=== PATIENT | female | born 1995 | race Caucasian/White ===

== ENCOUNTER 2017-05-28 21:10 | Emergency (ER) | payer OTHER ==
[2017-05-28 21:16] VITALS: BP 133/78; PULSE 82; RESP 18; TEMP 98.8
--- NOTE | 2017-05-28 21:58 | ED ---
General Adult HPI - General Chief complaint: Recheck/Abnormal Lab/Rx Stated complaint: Poss Time Seen by Provider: 05/28/17 21:18 Source: patient, RN notes reviewed Mode of arrival: ambulatory Limitations: no limitations - History of Present Illness Initial comments: Patient 21 year old female who presents emergency room today with a chief complaint of wanting breakfast as per she does admit that her menstrual cycle is approximately 18 days late. She denies any vaginal bleeding discharge. Denies any pain. States she did take test at home had 1 negative and one that she thought there was a faint line. Patient denies any recent fever, chills, shortness of breath, chest pain, back pain, abdominal pain, nausea or vomiting, numbness or tingling, dysuria or hematuria, constipation or diarrhea, headaches or visual changes, or any other complaints. - Related Data Home Medications Medication Instructions Recorded Confirmed No Known Home Medications [No 08/14/16 08/14/16 Known Home Medications] Allergies Allergy/AdvReac Type Severity Reaction Status Date / Time No Known Allergies Allergy Verified 05/28/17 21:16 Review of Systems ROS Statement: Those systems with pertinent positive or pertinent negative responses have been documented in the HPI. ROS Other: All systems not noted in ROS Statement are negative. Past Medical History Past Medical History: No Reported History Additional Past Medical History / Comment(s): Obstetric history: This is her first and she started care with me at 25 weeks. O+, abs neg , Rub Imm, RPR NR, Hep B neg, HIV NR. She had chlamydia through the but tested negative on 12/19. GBS neg. History of Any Multi-Drug Resistant Organisms: None Reported Past Surgical History: No Surgical Hx Reported Past Anesthesia/Blood Transfusion Reactions: No Reported Reaction Past Psychological History: Depression Smoking Status: Current every day smoker Past Alcohol Use History: None Reported Past Drug Use History: None Reported - Past Family History Mother Family Medical History: No Reported History General Exam - General Exam Comments Initial Comments: General: The patient is awake and alert, in no distress, and does not appear acutely ill. Eye: Pupils are equal, round and reactive to light, extra-ocular movements are intact. No nystagmus. There is normal conjunctiva bilaterally. No signs of icterus. Ears, nose, mouth and throat: There are moist mucous membranes and no oral lesions. Neck: The neck is supple, there is no tenderness or JVD. Cardiovascular: There is a regular rate and rhythm. No murmur, rub or gallop is appreciated. Respiratory: Lungs are clear to auscultation, respirations are non-labored, breath sounds are equal. No wheezes, stridor, rales, or rhonchi. Musculoskeletal: Normal ROM, no tenderness. Strength 5/5. Sensation intact. Pulses equal bilaterally 2+. Neurological: A&O x 3. CN II-XII intact, There are no obvious motor or sensory deficits. Coordination appears grossly intact. Speech is normal. Skin: Skin is warm and dry and no rashes or lesions are noted. Psychiatric: Cooperative, appropriate mood & affect, normal judgment. Limitations: no limitations Course Vital Signs 05/28/17 21:13 Temperature 98.8 F Pulse Rate 82 Respiratory 18 Rate Blood Pressure 133/78 O2 Sat by Pulse 100 Oximetry Medical Decision Making - Medical Decision Making test negative here in the emergency room. Patient denies any bleeding , discharge, pain. Patient will be discharged home. She is advised to follow- up with [facility]. Advised return for any other concerns. - Lab Data Lab Results 05/28/17 Range/Units 21:15 Urine HCG, Qual Not Detected (Not Detectd) Disposition Clinical Impression: Negative test Disposition: HOME SELF-CARE Condition: Good Additional Instructions: Please repeat presents to test at the end of the week if not sure cycle has not begun. Please follow-up with [facility] next week. Please return to emergency room for any other concerns. Referrals: Inder Goncalves MD [Primary Care Provider] - 1-2 days Time of Disposition: 21:57
== END 2017-05-28 22:02 | disposition home or self-care (01) ==
LOC: EC 21:10
DX: Z32.02 Encounter for pregnancy test, result negative (principal); N91.2 Amenorrhea, unspecified; F17.200 Nicotine dependence, unspecified, uncomplicated
CPT/HCPCS: 81025; 99282

== ENCOUNTER → 2017-05-30 | Outpatient (CLI) | payer OTHER | LOC: LABWHC1 15:54 | PROVIDERS: ATTEND Obstetrics & Gynecology | DX: N91.2 Amenorrhea, unspecified (principal) | CPT/HCPCS: 36415; 84702 ==

== ENCOUNTER 2017-11-23 20:35 | Emergency (ER) | payer OTHER ==
[2017-11-23 22:05] LABS: Appearance,Urine Cloudy (Clear); Bilirubin,Urine Negative (Negative); Blood,Urine Trace (Negative); Color,Urine Yellow; Glucose,Urine (UA) Negative (Negative); Ketones,Urine 3+ (Negative); Leukocyte Esterase,Urine Moderate (Negative); Mucus,Urine Many /hpf; Nitrite,Urine Negative (Negative); Protein,Urine 1+ (Negative); RBC,Urine 6 /hpf (0-5); Specific Gravity,Urine 1.028 (1.001-1.035); Squamous Epithelial Cell,Urine 10 /hpf (0-4); Urobilinogen,Urine <2.0 mg/dL (<2.0); WBC,Urine 5 /hpf (0-5)
[2017-11-23 22:06] LABS: Basophils # (A) 0.1 k/uL (0-0.2); Basophils % (A) 1 %; Eosinophils # (A) 0.3 k/uL (0-0.7); Eosinophils % (A) 2 %; HCT 40.2 % (34.0-46.0); HGB 13.1 gm/dL (11.4-16.0); Lymphocytes # (A) 2.6 k/uL (1.0-4.8); Lymphocytes % (A) 17 %; MCHC 32.5 g/dL (31.0-37.0); Mean Platelet Volume 7.2; Monocytes # (A) 0.8 k/uL (0-1.0); Monocytes % (A) 5 %; Neutrophils # (A) 11.6 k/uL (1.3-7.7); Neutrophils % (A) 75 %; Platelet Count 412 k/uL (150-450); RBC 4.67 m/uL (3.80-5.40); RDW 14.3 % (11.5-15.5); WBC 15.5 k/uL (4.0-11.0)
[2017-11-23 22:14] LABS: ALT 34 U/L (9-52); AST 23 U/L (14-36); Albumin 4.6 g/dL (3.5-5.0); Alkaline Phosphatase 81 U/L (38-126); Anion Gap 13 mmol/L; Blood Urea Nitrogen 8 mg/dL (7-17); Calcium 10.1 mg/dL (8.4-10.2); Carbon Dioxide 22 mmol/L (22-30); Chloride 102 mmol/L (98-107); Glucose 80 mg/dL (74-99); Sodium 137 mmol/L (137-145); Total Bilirubin 0.4 mg/dL (0.2-1.3)
[2017-11-23] MEDS ORDERED: SODIUM CHLORIDE 0.9% 2,000 ML IV ONE (22:20)
[2017-11-23 22:22] LABS: Potassium 4.4 mmol/L (3.5-5.1)
--- NOTE | 2017-11-23 22:24 | ED ---
Abdominal Pain HPI - General Chief Complaint: Abdominal Pain Stated Complaint: 6 weeks /Cramping Time Seen by Provider: 11/23/17 21:10 Source: patient, RN notes reviewed Mode of arrival: ambulatory Limitations: no limitations - History of Present Illness Initial Comments: This is a 21-year-old female presents emergency Department chief complaint abdominal cramping, . Patient states that she is A0 scheduled see Dr. Dexter. She believes that she's around 8 weeks . Patient states she has no vaginal bleeding or vaginal discharge. She states that proximal one hour prior arrival she started having some lower abdominal cramping increased back. Which he denies any dysuria or hematuria. Denies any vomiting she has been some nausea. Denies fever, chills, chest pain or shortness of breath. - Related Data Home Medications Medication Instructions Recorded Confirmed No Known Home Medications [No 11/23/17 11/23/17 Known Home Medications] Allergies Allergy/AdvReac Type Severity Reaction Status Date / Time No Known Allergies Allergy Verified 11/23/17 21:28 Review of Systems ROS Statement: Those systems with pertinent positive or pertinent negative responses have been documented in the HPI. ROS Other: All systems not noted in ROS Statement are negative. Past Medical History Past Medical History: No Reported History Additional Past Medical History / Comment(s): Obstetric history: This is her first and she started care with me at 25 weeks. O+, abs neg , Rub Imm, RPR NR, Hep B neg, HIV NR. She had chlamydia through the but tested negative on 12/19. GBS neg. History of Any Multi-Drug Resistant Organisms: None Reported Past Surgical History: No Surgical Hx Reported Past Anesthesia/Blood Transfusion Reactions: No Reported Reaction Past Psychological History: Depression Smoking Status: Current every day smoker Past Alcohol Use History: None Reported Past Drug Use History: None Reported - Past Family History Mother Family Medical History: No Reported History General Exam Limitations: no limitations General appearance: alert, in no apparent distress Head exam: Present: atraumatic, normocephalic, normal inspection Eye exam: Present: normal appearance, PERRL, EOMI. Absent: scleral icterus, conjunctival injection, periorbital swelling Respiratory exam: Present: normal lung sounds bilaterally. Absent: respiratory distress, wheezes, rales, rhonchi, stridor Cardiovascular Exam: Present: regular rate, normal rhythm, normal heart sounds. Absent: systolic murmur, diastolic murmur, rubs, gallop, clicks GI/Abdominal exam: Present: soft, normal bowel sounds. Absent: distended, tenderness, guarding, rebound, rigid Back exam: Absent: CVA tenderness (R), CVA tenderness (L) Course Vital Signs 11/23/17 11/23/17 20:45 22:46 Temperature 98.7 F Pulse Rate 87 65 Respiratory 16 18 Rate Blood Pressure 158/86 120/56 O2 Sat by Pulse 100 100 Oximetry Medical Decision Making - Medical Decision Making 21-year-old female presented emergency department for abdominal cramping and . Patient's labwork Essentially Unremarkable. Patient Is Slightly Dehydrated Patient Was Well-Hydrated Here States His Has Helped Improvement. Patient No Vaginal Bleeding Patient Will Be Discharged at This Time Return Parameters Were Discussed. - Lab Data Result diagrams: 11/23/17 21:46 11/23/17 21:46 Lab Results 11/23/17 11/23/17 11/23/17 Range/Units 21:46 21:46 21:46 WBC 15.5 H (4.0-11.0) k/uL RBC 4.67 (3.80-5.40) m/uL Hgb 13.1 (11.4-16.0) gm/dL Hct 40.2 (34.0-46.0) % MCV 86.0 (80.0-100.0) fL MCH 28.0 (25.0-35.0) pg MCHC 32.5 (31.0-37.0) g/dL RDW 14.3 (11.5-15.5) % Plt Count 412 (150-450) k/uL Neutrophils % 75 % Lymphocytes % 17 % Monocytes % 5 % Eosinophils % 2 % Basophils % 1 % Neutrophils # 11.6 H (1.3-7.7) k/uL Lymphocytes # 2.6 (1.0-4.8) k/uL Monocytes # 0.8 (0-1.0) k/uL Eosinophils # 0.3 (0-0.7) k/uL Basophils # 0.1 (0-0.2) k/uL Sodium 137 (137-145) mmol/L Potassium 4.4 (3.5-5.1) mmol/L Chloride 102 (98-107) mmol/L Carbon Dioxide 22 (22-30) mmol/L Anion Gap 13 mmol/L BUN 8 (7-17) mg/dL Creatinine 0.70 (0.52-1.04) mg/dL Est GFR (MDRD) Af Amer >60 (>60 ml/min/1.73 sqM) Est GFR (MDRD) Non-Af >60 (>60 ml/min/1.73 sqM) Glucose 80 (74-99) mg/dL Calcium 10.1 (8.4-10.2) mg/dL Total Bilirubin 0.4 (0.2-1.3) mg/dL AST 23 (14-36) U/L ALT 34 (9-52) U/L Alkaline Phosphatase 81 (38-126) U/L Total Protein 8.0 (6.3-8.2) g/dL Albumin 4.6 (3.5-5.0) g/dL Urine Color Urine Appearance (Clear) Urine pH (5.0-8.0) Ur Specific [place] (1.001-1.035) Urine Protein (Negative) Urine Glucose (UA) (Negative) Urine Ketones (Negative) Urine Blood (Negative) Urine Nitrite (Negative) Urine Bilirubin (Negative) Urine Urobilinogen (<2.0) mg/dL Ur Leukocyte Esterase (Negative) Urine RBC (0-5) /hpf Urine WBC (0-5) /hpf Ur Squamous Epith Cells (0-4) /hpf Urine Mucus (None) /hpf Urine HCG, Qual Detected (Not Detectd) 11/23/17 Range/Units 21:46 WBC (4.0-11.0) k/uL RBC (3.80-5.40) m/uL Hgb (11.4-16.0) gm/dL Hct (34.0-46.0) % MCV (80.0-100.0) fL MCH (25.0-35.0) pg MCHC (31.0-37.0) g/dL RDW (11.5-15.5) % Plt Count (150-450) k/uL Neutrophils % % Lymphocytes % % Monocytes % % Eosinophils % % Basophils % % Neutrophils # (1.3-7.7) k/uL Lymphocytes # (1.0-4.8) k/uL Monocytes # (0-1.0) k/uL Eosinophils # (0-0.7) k/uL Basophils # (0-0.2) k/uL Sodium (137-145) mmol/L Potassium (3.5-5.1) mmol/L Chloride (98-107) mmol/L Carbon Dioxide (22-30) mmol/L Anion Gap mmol/L BUN (7-17) mg/dL Creatinine (0.52-1.04) mg/dL Est GFR (MDRD) Af Amer (>60 ml/min/1.73 sqM) Est GFR (MDRD) Non-Af (>60 ml/min/1.73 sqM) Glucose (74-99) mg/dL Calcium (8.4-10.2) mg/dL Total Bilirubin (0.2-1.3) mg/dL AST (14-36) U/L ALT (9-52) U/L Alkaline Phosphatase (38-126) U/L Total Protein (6.3-8.2) g/dL Albumin (3.5-5.0) g/dL Urine Color Yellow Urine Appearance Cloudy H (Clear) Urine pH 6.0 (5.0-8.0) Ur Specific [place] 1.028 (1.001-1.035) Urine Protein 1+ H (Negative) Urine Glucose (UA) Negative (Negative) Urine Ketones 3+ H (Negative) Urine Blood Trace H (Negative) Urine Nitrite Negative (Negative) Urine Bilirubin Negative (Negative) Urine Urobilinogen <2.0 (<2.0) mg/dL Ur Leukocyte Esterase Moderate H (Negative) Urine RBC 6 H (0-5) /hpf Urine WBC 5 (0-5) /hpf Ur Squamous Epith Cells 10 H (0-4) /hpf Urine Mucus Many H (None) /hpf Urine HCG, Qual (Not Detectd) Disposition Clinical Impression: Abdominal pain during , Dehydration Disposition: HOME SELF-CARE Condition: Stable Instructions: Abdominal Pain in (ED) Additional Instructions: Please return to the Emergency Department if symptoms worsen or any other concerns. Referrals: Inder Goncalves MD [Primary Care Provider] - 1-2 days Time of Disposition: 23:07
[2017-11-23 22:47] VITALS: RESP 18
--- NOTE | 2017-11-23 23:00 | US ---
EXAMINATION TYPE: US OB <= 14 wk fetus DATE OF EXAM: 11/23/2017 COMPARISON: NONE CLINICAL HISTORY: Pain. Cramping x 1 hour. No bleeding. EXAM PERFORMED: Transabdominal (TA) EXAM MEASUREMENTS: GESTATIONAL AGE / DATING Dates by LMP: (9 weeks/4 days) EDC: 06/24/2018 Dates by Current Scan for: (6 weeks/5 days) EDC: 07/14/2018 MATERNAL ANATOMY Uterus: 9.6 x 7.1 x 5.4 cm Right Ovary: 3.5 x 1.8 x 2.1 cm Left Ovary: 3.4 x 2.0 x 2.0 cm Post CDS / Adnexa: no free fluid Presence of free fluid: no Presence of corpus luteal cyst: no Presence of subchorionic bleed: no GESTATION / SURVEY CRL: 0.8 cm (6 weeks/5 days) MSD: seen, not measured Yolk Sac (normal less than 6mm): 2.6 mm Heart Rate: 126 bpm Rhythm: Normal IUP: Viable IUP Date of LMP: 09/17/2017, Beta HcG (if available): not available Live single IUP measuring 6 weeks 5 days IMPRESSION: Single living intrauterine fetus. The gestational age is 6 weeks 5 days. I see no complicating proces s.
[2017-11-23 23:35] VITALS: BP 112/68; PULSE 83; TEMP 98.5
== END 2017-11-23 23:34 | disposition home or self-care (01) ==
LOC: EC 20:35
DX: O26.891 Other specified pregnancy related conditions, first trimester (principal); R10.9 Unspecified abdominal pain; O99.281 Endocrine, nutritional and metabolic diseases complicating pregnancy, first trimester; E86.0 Dehydration; O99.331 Smoking (tobacco) complicating pregnancy, first trimester; F17.200 Nicotine dependence, unspecified, uncomplicated; Z3A.01 Less than 8 weeks gestation of pregnancy
CPT/HCPCS: 36415; 76801; 80053; 81001; 81025; 84702; 85025; 86900; 86901; 96360; 99284

== ENCOUNTER 2017-12-01 19:46 | Emergency (ER) | payer OTHER ==
[2017-12-01] MEDS ORDERED: SODIUM CHLORIDE 0.9% 2,000 ML IV ONE (20:14)
--- NOTE | 2017-12-01 20:21 | ED ---
Abdominal Pain HPI - General Chief Complaint: Abdominal Pain Stated Complaint: 7 wks preg/abdominal pain Time Seen by Provider: 12/01/17 19:54 Source: patient, RN notes reviewed Mode of arrival: ambulatory Limitations: no limitations - History of Present Illness Initial Comments: This is a 21-year-old female presents emergency Department with chief complaint of lower abdominal, pelvic pain. Patient states she's fracture 7 weeks . She denies any vaginal bleeding or vaginal discharge. She states that she was here for swelling that she is dehydrated. Patient denies urinary frequency but states that she has some discomfort in her pelvic region when she urinates. Patient states that she's been waiting for her [employer] to call breath she has not her back for scheduled appointment. Patient is A0 patient denies fever, chills, back pain, chest pain or shortness of breath. She states movement makes her symptoms worse at this time. - Related Data Home Medications Medication Instructions Recorded Confirmed Pvo-Efju-Rzgwi Acid 1 cap PO DAILY 12/01/17 12/01/17 [-U Capsule (formulary)] Allergies Allergy/AdvReac Type Severity Reaction Status Date / Time No Known Allergies Allergy Verified 12/01/17 20:28 Review of Systems ROS Statement: Those systems with pertinent positive or pertinent negative responses have been documented in the HPI. ROS Other: All systems not noted in ROS Statement are negative. Past Medical History Past Medical History: No Reported History Additional Past Medical History / Comment(s): Obstetric history: This is her first and she started care with [facility] at 25 weeks. O+, abs neg , Rub Imm, RPR NR, Hep B neg, HIV NR. She had chlamydia through the but tested negative on 12/19. GBS neg. History of Any Multi-Drug Resistant Organisms: None Reported Past Surgical History: No Surgical Hx Reported Past Anesthesia/Blood Transfusion Reactions: No Reported Reaction Past Psychological History: Depression Smoking Status: Current every day smoker Past Alcohol Use History: None Reported Past Drug Use History: None Reported - Past Family History Mother Family Medical History: No Reported History General Exam Limitations: no limitations General appearance: alert, in no apparent distress Head exam: Present: atraumatic, normocephalic, normal inspection Neck exam: Present: normal inspection, full ROM. Absent: tenderness, meningismus, lymphadenopathy Respiratory exam: Present: normal lung sounds bilaterally. Absent: respiratory distress, wheezes, rales, rhonchi, stridor Cardiovascular Exam: Present: regular rate, normal rhythm, normal heart sounds. Absent: systolic murmur, diastolic murmur, rubs, gallop, clicks GI/Abdominal exam: Present: soft, tenderness (minimal lower abdominal tenderness ), normal bowel sounds. Absent: distended, guarding, rebound, rigid Back exam: Absent: CVA tenderness (R), CVA tenderness (L) Skin exam: Present: warm, dry, intact, normal color. Absent: rash Course Vital Signs 12/01/17 19:58 Temperature 97 F L Pulse Rate 83 Respiratory 18 Rate Blood Pressure 118/62 O2 Sat by Pulse 97 Oximetry Medical Decision Making - Medical Decision Making 21-year-old female presented return for lower abdominal pain. Patient ultrasound shows satisfactory growth. Patient's lab work is unremarkable. They recommend pelvic exam no patient states she would rather have her [employer] on this. Patient be discharged at this time return parameters were discussed. - Lab Data Result diagrams: 12/01/17 20:22 12/01/17 20:22 Lab Results 12/01/17 12/01/17 12/01/17 Range/Units 20:22 20:22 20:22 WBC 17.5 H (4.0-11.0) k/uL RBC 4.53 (3.80-5.40) m/uL Hgb 12.8 (11.4-16.0) gm/dL Hct 39.8 (34.0-46.0) % MCV 87.7 (80.0-100.0) fL MCH 28.2 (25.0-35.0) pg MCHC 32.2 (31.0-37.0) g/dL RDW 14.2 (11.5-15.5) % Plt Count 421 (150-450) k/uL Neutrophils % 74 % Lymphocytes % 19 % Monocytes % 4 % Eosinophils % 2 % Basophils % 0 % Neutrophils # 13.0 H (1.3-7.7) k/uL Lymphocytes # 3.3 (1.0-4.8) k/uL Monocytes # 0.6 (0-1.0) k/uL Eosinophils # 0.3 (0-0.7) k/uL Basophils # 0.1 (0-0.2) k/uL Sodium 136 L (137-145) mmol/L Potassium 4.3 (3.5-5.1) mmol/L Chloride 100 (98-107) mmol/L Carbon Dioxide 24 (22-30) mmol/L Anion Gap 12 mmol/L BUN 6 L (7-17) mg/dL Creatinine 0.59 (0.52-1.04) mg/dL Est GFR (MDRD) Af Amer >60 (>60 ml/min/1.73 sqM) Est GFR (MDRD) Non-Af >60 (>60 ml/min/1.73 sqM) Glucose 86 (74-99) mg/dL Calcium 9.9 (8.4-10.2) mg/dL Urine Color Yellow Urine Appearance Cloudy H (Clear) Urine pH 5.5 (5.0-8.0) Ur Specific [place] 1.022 (1.001-1.035) Urine Protein Trace H (Negative) Urine Glucose (UA) Negative (Negative) Urine Ketones Trace H (Negative) Urine Blood Small H (Negative) Urine Nitrite Negative (Negative) Urine Bilirubin Negative (Negative) Urine Urobilinogen <2.0 (<2.0) mg/dL Ur Leukocyte Esterase Moderate H (Negative) Urine RBC 1 (0-5) /hpf Urine WBC 4 (0-5) /hpf Ur Squamous Epith Cells 5 H (0-4) /hpf Urine Bacteria Rare H (None) /hpf Urine Mucus Many H (None) /hpf Disposition Clinical Impression: Abdominal pain during Disposition: HOME SELF-CARE Condition: Stable Instructions: Abdominal Pain in (ED) Additional Instructions: Please return to the Emergency Department if symptoms worsen or any other concerns. Referrals: Inder Goncalves MD [Primary Care Provider] - 1-2 days Time of Disposition: 21:36
[2017-12-01 20:32] LABS: Basophils # (A) 0.1 k/uL (0-0.2); Basophils % (A) 0 %; Eosinophils # (A) 0.3 k/uL (0-0.7); Eosinophils % (A) 2 %; HCT 39.8 % (34.0-46.0); HGB 12.8 gm/dL (11.4-16.0); Lymphocytes # (A) 3.3 k/uL (1.0-4.8); Lymphocytes % (A) 19 %; MCH 28.2 pg (25.0-35.0); MCHC 32.2 g/dL (31.0-37.0); MCV 87.7 fL (80.0-100.0); Mean Platelet Volume 7.3; Monocytes # (A) 0.6 k/uL (0-1.0); Monocytes % (A) 4 %; Neutrophils % (A) 74 %; Platelet Count 421 k/uL (150-450); RBC 4.53 m/uL (3.80-5.40); RDW 14.2 % (11.5-15.5); WBC 17.5 k/uL (4.0-11.0)
[2017-12-01 20:39] LABS: Appearance,Urine Cloudy (Clear); Bacteria,Urine Rare /hpf; Bilirubin,Urine Negative (Negative); Blood,Urine Small (Negative); Color,Urine Yellow; Glucose,Urine (UA) Negative (Negative); Ketones,Urine Trace (Negative); Leukocyte Esterase,Urine Moderate (Negative); Mucus,Urine Many /hpf; Nitrite,Urine Negative (Negative); PH, Urine 5.5 (5.0-8.0); Protein,Urine Trace (Negative); RBC,Urine 1 /hpf (0-5); Specific Gravity,Urine 1.022 (1.001-1.035); Squamous Epithelial Cell,Urine 5 /hpf (0-4); Urobilinogen,Urine <2.0 mg/dL (<2.0); WBC,Urine 4 /hpf (0-5)
[2017-12-01 20:45] LABS: Anion Gap 12 mmol/L; Blood Urea Nitrogen 6 mg/dL (7-17); Calcium 9.9 mg/dL (8.4-10.2); Carbon Dioxide 24 mmol/L (22-30); Chloride 100 mmol/L (98-107); Glucose 86 mg/dL (74-99); Potassium 4.3 mmol/L (3.5-5.1); Sodium 136 mmol/L (137-145)
--- NOTE | 2017-12-01 21:30 | US ---
EXAMINATION TYPE: US OB <= 14 wk fetus DATE OF EXAM: 12/01/2017 COMPARISON: 11/23/2017 CLINICAL HISTORY: Pain. Cramping pressure no bleeding EXAM PERFORMED: Transabdominal (TA) EXAM MEASUREMENTS: GESTATIONAL AGE / DATING Physician Established: Not yet established Dates by LMP: (7 weeks/6 days) EDC: 07/14/2018 Dates by First Scan: (6 weeks/5 days) EDC: 07/14/2018 Dates by Current Scan for: ( 7 weeks/1 days) EDC: 07/19/2018 MATERNAL ANATOMY Uterus: 10.3 x 6.3 x 7.7 cm Right Ovary: 3.2 x 2.0 x 1.2 cm Left Ovary: 3.0 x 2.0 x 2.1 cm Post CDS / Adnexa: wnl Presence of free fluid: no Presence of corpus luteal cyst: no Presence of subchorionic bleed: no GESTATION / SURVEY CRL: 1.1 cm (7 weeks/1 days) Yolk Sac (normal less than 6mm): 2mm Heart Rate: 162 bpm Rhythm: Normal IUP: Viable IUP Beta HcG (if available): Not available at this time Viable IUP seen 7w1d JUSTIN 07/19/2018 HR 162 BPM IMPRESSION: Allowing for error of measurement, there is satisfactory growth compared to last exam.
[2017-12-01 21:44] VITALS: BP 122/58; PULSE 72; RESP 12; TEMP 97
[2017-12-01] MEDS ORDERED: ACETAMINOPHEN TAB 325 MG TAB PO STA (21:44)
[2017-12-01 21:55] LABS: HCG,Quantitative Serum 75962.1 mIU/mL
== END 2017-12-01 22:57 | disposition home or self-care (01) ==
LOC: EC 19:46
DX: O26.891 Other specified pregnancy related conditions, first trimester (principal); R10.2 Pelvic and perineal pain; O99.331 Smoking (tobacco) complicating pregnancy, first trimester; F17.200 Nicotine dependence, unspecified, uncomplicated; Z79.899 Other long term (current) drug therapy; Z3A.01 Less than 8 weeks gestation of pregnancy
CPT/HCPCS: 36415; 76801; 80048; 81001; 84702; 85025; 87086; 96360; 96361; 99284

== ENCOUNTER → 2017-12-30 | Outpatient (CLI) | payer OTHER ==
--- NOTE | 2017-12-30 10:04 | US ---
EXAMINATION TYPE: US OB <= 14 wk fetus DATE OF EXAM: 12/30/2017 COMPARISON: Prior ultrasound December 01, 2017 CLINICAL HISTORY: [id number] Confirm Dates. Positive beta-hCG test. EXAM PERFORMED: Transabdominal (TA) EXAM MEASUREMENTS: GESTATIONAL AGE / DATING Physician Established: (12 weeks/0 days) EDC: 07/14/18 Dates by LMP: (12 weeks/0 days) EDC: 07/14/18 Dates by First Scan: (11 weeks/2 days) EDC: 07/19/2018 Dates by Current Scan for: (12 weeks/0 days) EDC: 07/19/18 MATERNAL ANATOMY Uterus: 15. 1 x 5.5 x 8.9cm Right Ovary: obscured by overlying bowel gas Left Ovary: 3.5 x 2.1 x 2.3cm Post CDS / Adnexa: wnl Presence of free fluid: no Presence of subchorionic bleed: 2 noted, measuring 1.1 x 0.4 x 1.1cm and 1.1 x 0.5 x 1.8cm GESTATION / SURVEY CRL: 5.3 (12 weeks/0 days) Yolk Sac (normal less than 6mm): not seen Heart Rate: 163 bpm Rhythm: Normal IUP: Viable IUP Single live intrauterine gestation is redemonstrated. Gestational sac and pole are seen on curr ent study. Yolk sac is not clearly identified. No free fluid is seen in pelvic cul-de-sac. There are however 2 tiny fluid collections adjacent to gestational could reflect small subchorionic hemorrhages that are marked towards end of study. Left ovary is identified. Right ovary is not clearly seen on today's study. No suspicious adnexal mas ses noted. IMPRESSION: Single live intrauterine gestation is redemonstrated, mean crown-rump length is 5.3 cm corresponding to 12 weeks 0 day old fetus. 2 tiny subchorionic hemorrhages are noted on current study.
== END | disposition home or self-care (01) ==
LOC: RADUSWWP 09:02
PROVIDERS: ATTEND Obstetrics & Gynecology
DX: O20.8 Other hemorrhage in early pregnancy (principal); Z3A.12 12 weeks gestation of pregnancy
CPT/HCPCS: 76801

== ENCOUNTER 2018-01-24 19:50 | Emergency (ER) | payer OTHER ==
[2018-01-24] MEDS ORDERED: ACETAMINOPHEN TAB 325 MG TAB PO STA (21:13)
[2018-01-24] MEDS ORDERED: SODIUM CHLORIDE 0.9% 1,000 ML IV ONE ×2 (21:13→22:28)
--- NOTE | 2018-01-24 21:16 | ED ---
Abdominal Pain HPI - General Chief Complaint: Abdominal Pain Stated Complaint: 15 wks pg; cramping Time Seen by Provider: 01/24/18 20:55 Source: patient Mode of arrival: ambulatory Limitations: no limitations - History of Present Illness Initial Comments: 22-year-old female patient presents to the emergency department today for complaints of lower abdominal pain and lower back pain. Patient reports she is 15 weeks . Has been receiving care from Dr. Trejo. States that the pain started around 5:30 this evening. States that at the beginning of was severe and has lessened in severity at this time her wrist are present. She is A0. Patient denies any hematuria, dysuria, urinary frequency, urinary urgency. Denies any abnormal vaginal bleeding or discharge today. States she is having normal bowel movements. She denies any nausea or vomiting with this. Denies any fevers or chills. Patient denies any recent rash, shortness breath, chest pain, numbness, tingling, dizziness, weakness, hematuria , dysuria, urinary urgency, urinary frequency, headache, visual changes, or any other complaints. - Related Data Home Medications Medication Instructions Recorded Confirmed Bmb-[id number] Acid 1 cap PO DAILY 12/01/17 01/24/18 [-U Capsule (formulary)] Allergies Allergy/AdvReac Type Severity Reaction Status Date / Time No Known Allergies Allergy Verified 12/01/17 20:28 Review of Systems ROS Statement: Those systems with pertinent positive or pertinent negative responses have been documented in the HPI. ROS Other: All systems not noted in ROS Statement are negative. Past Medical History Past Medical History: No Reported History Additional Past Medical History / Comment(s): Obstetric history: This is her first and she started care with ks at 25 weeks. O+, abs neg , Rub Imm, RPR NR, Hep B neg, HIV NR. She had chlamydia through the but tested negative on 12/19. GBS neg. History of Any Multi-Drug Resistant Organisms: None Reported Past Surgical History: No Surgical Hx Reported Past Anesthesia/Blood Transfusion Reactions: No Reported Reaction Past Psychological History: Depression Smoking Status: Current every day smoker Past Alcohol Use History: None Reported Past Drug Use History: None Reported - Past Family History Mother Family Medical History: No Reported History General Exam Limitations: no limitations General appearance: alert, in no apparent distress, other (This is a well- developed, well-nourished adult female patient in no acute distress. Vital signs upon presentation are temperature 98.7F, pulse 80, respirations 20, blood pressure 121/71, pulse ox 100% on room air.) Eye exam: Present: normal appearance, PERRL, EOMI. Absent: scleral icterus, conjunctival injection, periorbital swelling ENT exam: Present: normal exam, normal oropharynx, mucous membranes moist Respiratory exam: Present: normal lung sounds bilaterally. Absent: respiratory distress, wheezes, rales, rhonchi, stridor Cardiovascular Exam: Present: regular rate, normal rhythm, normal heart sounds. Absent: systolic murmur, diastolic murmur, rubs, gallop, clicks GI/Abdominal exam: Present: soft, tenderness (Lower abdominal tenderness both right and left lower quadrants.), normal bowel sounds. Absent: distended, guarding, rebound, rigid Back exam: Present: normal inspection. Absent: CVA tenderness (R), CVA tenderness (L) Neurological exam: Present: alert, oriented X3, CN II-XII intact Psychiatric exam: Present: normal affect, normal mood Skin exam: Present: warm, dry, intact, normal color. Absent: rash Course Vital Signs 01/24/18 01/24/18 01/24/18 20:05 22:24 23:41 Temperature 98.7 F 99 F Pulse Rate 80 62 80 Respiratory 20 18 18 Rate Blood Pressure 121/71 126/62 117/62 O2 Sat by Pulse 100 100 99 Oximetry Medical Decision Making - Medical Decision Making 22-year-old female patient presented to the emergency department today for complaints of lower abdominal pain and low back pain. Physical examination was unremarkable. Abdomen was soft and nontender. There is no CVA tenderness. Labs reviewed and did reveal an elevated white blood cell count at 16.3. Sodium is 136. Urinalysis showed a cloudy appearance with 1+ protein, 3+ ketones, 1+ bilirubin. There is a small amount of leukocyte esterase, 5 squamous epithelial cells, and many mucus. Ultrasound showed a viable intrauterine measuring 15 weeks. There is no evidence of placenta previa or abruption. Patient is not having any vaginal discharge or bleeding so we did not perform pelvic exam at this time. I did discuss findings with the patient and informed her symptoms could be related to dehydration as she did have 2+ ketones in the urine. Her blood sugar was normal. We did give her 2 liters of normal saline here in the department. She reports she is feeling better. She is instructed to follow-up with her SENIOR SOFTWARE PROJECT MANAGER as soon as possible for further evaluation. She is instructed to return here immediately for any new, worsening, or concerning symptoms. She verbalizes understanding and agrees this plan. - Lab Data Result diagrams: 01/24/18 21:15 01/24/18 21:15 Lab Results 01/24/18 01/24/18 01/24/18 Range/Units 21:15 21:15 21:15 WBC 16.3 H (4.0-11.0) k/uL RBC 4.07 (3.80-5.40) m/uL Hgb 11.6 (11.4-16.0) gm/dL Hct 34.2 (34.0-46.0) % MCV 84.1 (80.0-100.0) fL MCH 28.4 (25.0-35.0) pg MCHC 33.8 (31.0-37.0) g/dL RDW 14.3 (11.5-15.5) % Plt Count 388 (150-450) k/uL Neutrophils % 78 % Lymphocytes % 14 % Monocytes % 5 % Eosinophils % 2 % Basophils % 0 % Neutrophils # 12.7 H (1.3-7.7) k/uL Lymphocytes # 2.3 (1.0-4.8) k/uL Monocytes # 0.7 (0-1.0) k/uL Eosinophils # 0.3 (0-0.7) k/uL Basophils # 0.0 (0-0.2) k/uL Sodium 136 L (137-145) mmol/L Potassium 4.1 (3.5-5.1) mmol/L Chloride 102 (98-107) mmol/L Carbon Dioxide 23 (22-30) mmol/L Anion Gap 11 mmol/L BUN 7 (7-17) mg/dL Creatinine 0.50 L (0.52-1.04) mg/dL Est GFR (CKD-EPI)AfAm >90 (>60 ml/min/1.73 sqM) Est GFR (CKD-EPI)NonAf >90 (>60 ml/min/1.73 sqM) Glucose 74 (74-99) mg/dL Calcium 9.4 (8.4-10.2) mg/dL Total Bilirubin 0.5 (0.2-1.3) mg/dL AST 29 (14-36) U/L ALT 28 (9-52) U/L Alkaline Phosphatase 91 (38-126) U/L Total Protein 7.5 (6.3-8.2) g/dL Albumin 3.9 (3.5-5.0) g/dL Amylase 52 (30-110) U/L Lipase 47 (23-300) U/L Urine Color Yellow Urine Appearance Cloudy H (Clear) Urine pH 6.0 (5.0-8.0) Ur Specific [place] 1.030 (1.001-1.035) Urine Protein 1+ H (Negative) Urine Glucose (UA) Negative (Negative) Urine Ketones 3+ H (Negative) Urine Blood Negative (Negative) Urine Nitrite Negative (Negative) Urine Bilirubin 1+ H (Negative) Urine Urobilinogen 4.0 (<2.0) mg/dL Ur Leukocyte Esterase Small H (Negative) Urine RBC 3 (0-5) /hpf Urine WBC 3 (0-5) /hpf Ur Squamous Epith Cells 5 H (0-4) /hpf Urine Mucus Many H (None) /hpf - Radiology Data Radiology results: report reviewed, image reviewed Ultrasound of the fetus was obtained, report was reviewed in its entirety. Impression by Dr. Robertson shows ultrasound gestational age is 16 weeks. There is satisfactory growth compared to last exam. Hypoechoic areas in the placenta are probably venous lakes and are of doubtful significance. No evidence of placental abruption or placenta previa. Disposition Clinical Impression: Dehydration, Pelvic pain during Disposition: HOME SELF-CARE Condition: Good Instructions: Dehydration (ED), Abdominal Pain in (ED) Additional Instructions: Increase fluids. Follow-up with her SENIOR SOFTWARE PROJECT MANAGER as soon as possible. Return here immediately for any new, worsening, or concerning symptoms. Referrals: Inder Goncalves MD [Primary Care Provider] - 1-2 days Time of Disposition: 22:47
[2018-01-24 21:44] LABS: Basophils % (A) 0 %; Eosinophils # (A) 0.3 k/uL (0-0.7); Eosinophils % (A) 2 %; HCT 34.2 % (34.0-46.0); HGB 11.6 gm/dL (11.4-16.0); Lymphocytes # (A) 2.3 k/uL (1.0-4.8); Lymphocytes % (A) 14 %; MCH 28.4 pg (25.0-35.0); MCHC 33.8 g/dL (31.0-37.0); MCV 84.1 fL (80.0-100.0); Mean Platelet Volume 7.1; Monocytes # (A) 0.7 k/uL (0-1.0); Monocytes % (A) 5 %; Neutrophils # (A) 12.7 k/uL (1.3-7.7); Neutrophils % (A) 78 %; Platelet Count 388 k/uL (150-450); RBC 4.07 m/uL (3.80-5.40); RDW 14.3 % (11.5-15.5); WBC 16.3 k/uL (4.0-11.0)
[2018-01-24 21:46] LABS: Appearance,Urine Cloudy (Clear); Bilirubin,Urine 1+ (Negative); Blood,Urine Negative (Negative); Color,Urine Yellow; Glucose,Urine (UA) Negative (Negative); Ketones,Urine 3+ (Negative); Leukocyte Esterase,Urine Small (Negative); Mucus,Urine Many /hpf; Nitrite,Urine Negative (Negative); Protein,Urine 1+ (Negative); RBC,Urine 3 /hpf (0-5); Squamous Epithelial Cell,Urine 5 /hpf (0-4); WBC,Urine 3 /hpf (0-5)
[2018-01-24 21:58] LABS: ALT 28 U/L (9-52); AST 29 U/L (14-36); Albumin 3.9 g/dL (3.5-5.0); Alkaline Phosphatase 91 U/L (38-126); Amylase 52 U/L (30-110); Anion Gap 11 mmol/L; Blood Urea Nitrogen 7 mg/dL (7-17); Calcium 9.4 mg/dL (8.4-10.2); Carbon Dioxide 23 mmol/L (22-30); Chloride 102 mmol/L (98-107); Glucose 74 mg/dL (74-99); Lipase 47 U/L (23-300); Sodium 136 mmol/L (137-145); Total Bilirubin 0.5 mg/dL (0.2-1.3); Total Protein 7.5 g/dL (6.3-8.2)
[2018-01-24 22:05] LABS: Potassium 4.1 mmol/L (3.5-5.1)
--- NOTE | 2018-01-24 22:16 | US ---
EXAMINATION TYPE: US OB >= 14 wk fetus DATE OF EXAM: 01/24/2018 COMPARISON: 12/30/2017 CLINICAL HISTORY: PainAbdomen pain x 4 hours TECHNIQUE: Transabdominal (TA) GESTATIONAL AGE / DATING Physician Established: (15 weeks/4 days) EDC: 07/14/2018 Dates by LMP: (15 weeks/4 days) EDC: 07/14/2018 Dates by First Scan: (15 weeks/4 days) EDC: 07/14/2018 Dates by Current Scan: (16 weeks/0 days) EDC: 07/11/2018 SURVEY IUP: Single PLACENTA: Anterior: multiple hypoechoic area within placenta with largest measuring 1.6cm, possible p lacental lakes, 3.1cm hypoechoic area superior to placenta PREVIA: No Previa MAAME: 11.6 cm Normal CERVICAL LENGTH (transabdominal: norm > 3.0cm): 3.7 cm BIOMETRY PRESENTATION: Breech LIE: Longitudinal BPD: 3.2 cm 16 weeks / 1 days HC: 11.8 cm 15 weeks / 6 days AC: 9.9 cm 15 weeks / 6 days FL: 1.8 cm 15 weeks / 3 days ESTIMATED WEIGHT IN GRAMS: 132 grams ESTIMATED WEIGHT IN LBS/OZ: 0 lbs. 5 oz. WEIGHT PERCENTAGE BASED ON ESTABLISHED DATES: 49% HC/AC: 1.20 Normal FL/AC: 18.64 HEART RATE: 149 bpm RHYTHM: Normal Viable single IUP measuring 16 weeks 0 days with a heart rate of 149bpm and an estimated delivery deanne e of 07/11/2018, multiple hypoechoic areas noted within and superior to placenta. IMPRESSION: The ultrasound gestational age is 16 weeks. There is satisfactory growth compared to last exam. Hypoechoic areas in the placenta are probably venous lakes and are of doubtful significance. No evide nce of placental abruption or placenta previa.
[2018-01-24 22:24] VITALS: RESP 18; TEMP 99
[2018-01-24 23:42] VITALS: BP 117/62; PULSE 80
== END 2018-01-24 23:40 | disposition home or self-care (01) ==
LOC: EC 19:50
DX: O26.892 Other specified pregnancy related conditions, second trimester (principal); O99.282 Endocrine, nutritional and metabolic diseases complicating pregnancy, second trimester; O99.89 Other specified diseases and conditions complicating pregnancy, childbirth and the puerperium; R10.2 Pelvic and perineal pain; E86.0 Dehydration; D72.829 Elevated white blood cell count, unspecified; O99.332 Smoking (tobacco) complicating pregnancy, second trimester; Z3A.16 16 weeks gestation of pregnancy; Z79.899 Other long term (current) drug therapy
CPT/HCPCS: 36415; 76805; 80053; 81001; 82150; 83690; 85025; 96360; 96361; 99284

== ENCOUNTER → 2018-02-13 | Outpatient (CLI) | payer OTHER ==
--- NOTE | 2018-02-13 17:44 | US ---
EXAMINATION TYPE: US OB anatomy transabd DATE OF EXAM: 02/13/2018 COMPARISON: NONE HISTORY: Z34.80 supervision of other normal TECHNIQUE: Transabdominal (TA) EXAM MEASUREMENTS: GESTATIONAL AGE / DATING Physician Established: (18 weeks/3 days) EDC: 07/14/18 Dates by LMP: (20 weeks/3 days) EDC: 06/30/18 Dates by First Scan: (18 weeks/3 days) EDC: 07/14/18 Dates by Current Scan for: (18 weeks/4 days) EDC: 07/13/18 SURVEY IUP: Single PLACENTA: Anterior, Heterogeneous placenta, multiple hypoechoic areas noted. 2.8cm hypoechoic area no [place] superior to placenta as noted on prior exam PREVIA: No previa MAAME: 13.7 cm Normal CERVICAL LENGTH (transabdominal: norm > 3.0cm): 4.3 cm BIOMETRY PRESENTATION: Breech LIE: Transverse lie with head maternal R BPD: 3.9 cm 18 weeks / 0 days HC: 15.2 cm 18 weeks / 2 days AC: 13.6 cm 19 weeks / 1 days FL: 2.8 cm 18 weeks / 4 days ESTIMATED WEIGHT IN GRAMS: 255 grams ESTIMATED WEIGHT IN LBS/OZ: 0 lbs. 9 oz. HC/AC: 1.12 Normal FL/AC: 21% Normal HEART RATE: 149 bpm RHYTHM: Normal ANATOMY SEEN (within normal limits): * Lateral Vent (< 1 cm) 0.6 cm * Cisterna Magna (< 1.1 cm) 0.4 cm * Nuchal Fold (< 0.6 cm) 0.2 cm * Cerebellum (varies with age) 1.5 cm Choroid Plexus (bilateral) Midline Falx Cavus Septi Pellucidi Four Chamber Heart - echogenic focus noted Outflow tracts: LVOT/RVOT Stomach Situs Nose / Lips Diaphragm Kidneys (bilateral) Bladder Cord Insert Three Vessel Cord Longitudinal Spine Transverse Spine Arms (bilateral) Legs (bilateral) IMPRESSION: The ultrasound JUSTIN is 07/13/2018 which compares favorably with the previous original exam of 11/23/2017 which gives an JUSTIN of 07/14/2018. There is satisfactory growth. I see no complicating process.
== END | disposition home or self-care (01) ==
LOC: RADUSWWP 16:18
PROVIDERS: ATTEND Obstetrics & Gynecology
DX: Z34.92 Encounter for supervision of normal pregnancy, unspecified, second trimester (principal); Z3A.18 18 weeks gestation of pregnancy
CPT/HCPCS: 76811

== ENCOUNTER → 2018-06-06 | Outpatient (CLI) | payer OTHER ==
[2018-06-06 20:57] VITALS: BP 117/59; PULSE 87; RESP 16; TEMP 98.6
--- NOTE | 2018-06-16 12:39 | P.MSEPDOC ---
Presenting Problems - Arrival Data Date of Arrival on Unit: 06/06/18 Time of Arrival on Unit: 18:54 Mode of Transport: Wheelchair - Complaint OB-Reason for Admission/Chief Complaint: Possible Onset of Labor Comment: contractions since 1pm every 2-4 minutes. Medical History - Information : 2 Para: 1 Term: 1 : 0 Abortions: Spontaneous or Elective: 0 Number of Living Children: 1 - Gestational Age Gestational Age by JUSTIN (wks/days): 34 Weeks and 4 Days Review of Systems - Review of Systems Constitutional: No problems Breast: No problems ENT: No problems Cardiovascular: No problems Respiratory: No problems Gastrointestinal: No problems Genitourinary: No problems Musculoskeletal: No problems Neurological: No problems Skin: No problems Vital Signs - Temperature Temperature: 98.6 F Temperature Source: Temporal Artery Scan - Pulse Right Sitting Brachial Pulse Rate: 87 Pulse Assessment Method: Automatic Cuff - Respirations Respiratory Rate: 16 Oxygen Delivery Method: Room Air - Blood Pressure Right Arm Sitting Blood Pressure: 117/59 Blood Pressure Mean: 78 Blood Pressure Source: Automatic Cuff Medical Screen Scoring (Pre) - Cervical Exam Dilation: 0 cm = 0 Membranes: Intact - Uterine Contractions Frequency: > 5 minutes apart = 1 Intensity: N/A - Maternal Vital Signs Maternal Temperature: N/A Maternal Blood Pressure: N/A Signs of Preeclampsia: N/A Maternal Respirations: N/A - Pain Assessment Pain Location and Character: Lower, Abdomen Pain Scale Used: Numeric (1 - 10) Pain Intensity: 10 Pain Management Goal: 4 Pain Description: Cramping Pain Radiation Location: n/a Pain Frequency: Intermittent Pain Duration: 6 Pain Duration Units: Hours Pain Behavior: Vocalization Pain Aggravating Factors: None - Maternal Trauma Maternal Trauma: N/A - Assessment Baseline FHR: 150 Heart Rate - NICHD Category: Category I (Normal) = 0 NST: Reactive Position: N/A Station: N/A - Total Score Total Score (Pre): 1 - Level of Risk Level of Risk: Low (0-5) I agree with the RN Medical Screening Exam: Yes Risk & Benefit of care provided described in d/c instruction: Yes Diagnosis: RELATED CONDITIONS, UNSPECIFIED, THIRD TRIMESTER
== END | disposition home or self-care (01) ==
LOC: FBPOP 18:54
PROVIDERS: ATTEND Obstetrics & Gynecology
DX: O26.93 Pregnancy related conditions, unspecified, third trimester (principal); Z3A.34 34 weeks gestation of pregnancy
CPT/HCPCS: 59025; G0463; 99213

== ENCOUNTER → 2018-07-09 | Outpatient (CLI) | payer OTHER ==
--- NOTE | 2018-07-10 07:38 | US ---
EXAMINATION TYPE: US OB >= 14 wk fetus DATE OF EXAM: 07/09/2018 COMPARISON: US 2017 CLINICAL HISTORY: O99.213 Obesity complicated 3rd trimester; occasional smoker; for growth today TECHNIQUE: Transabdominal (TA) GESTATIONAL AGE / DATING Physician Established: (39 weeks/2 days) EDC: 07/14/2018 Dates by LMP: (41 weeks/2 days) EDC: 06/30/2018 Dates by First Scan: (39 weeks/2 days) EDC: 07/14/2018 Dates by Current Scan: (38 weeks/1 day) EDC: 07/22/2018 Beta HCG (if available): Not available at this time SURVEY IUP: Single PLACENTA: Anterior; venous lakes noted as hypoechoic areas with largest mid placenta =1.6 x 0.9 x 2.2 cm PREVIA: No Previa MAAME: 13.6 cm Normal CERVICAL LENGTH (transabdominal: norm > 3.0cm): 3.2 cm BIOMETRY PRESENTATION: Vertex LIE: Oblique BPD: 8.9 cm 35 weeks / 6 days HC: 33.3 cm 38 weeks / 0 days AC: 37.2 cm 41 weeks / 1 day FL: 7.6 cm 38 weeks / 4 days ESTIMATED WEIGHT IN GRAMS: 3809.0 grams ESTIMATED WEIGHT IN LBS/OZ: 8 lbs. 6 oz. WEIGHT PERCENTAGE BASED ON ESTABLISHED DATES: 76.5% HC/AC: 0.90 Normal FL/AC: 20.29 Normal HEART RATE: 148 bpm RHYTHM: Normal Single, live IUP,38 weeks/1 day, EDC: 07/22/2018, [id number] IMPRESSION: Single viable intrauterine .
== END | disposition home or self-care (01) ==
LOC: RADUSWWP 14:56
PROVIDERS: ATTEND Obstetrics & Gynecology
DX: O99.213 Obesity complicating pregnancy, third trimester (principal); Z3A.38 38 weeks gestation of pregnancy
CPT/HCPCS: 76805

== ENCOUNTER 2019-08-22 00:17 | Emergency (ER) | payer OTHER ==
[2019-08-22 00:30] VITALS: TEMP 98.7
[2019-08-22] MEDS ORDERED: ONDANSETRON 4 MG/2 ML VIAL IVP STA (00:52)
[2019-08-22] MEDS ORDERED: SODIUM CHLORIDE 0.9% 1,000 ML IV STA (00:52)
[2019-08-22 01:51] LABS: Basophils # (A) 0.1 k/uL (0-0.2); Basophils % (A) 1 %; Eosinophils # (A) 0.2 k/uL (0-0.7); Eosinophils % (A) 1 %; HCT 38.2 % (34.0-46.0); HGB 12.2 gm/dL (11.4-16.0); Lymphocytes # (A) 1.9 k/uL (1.0-4.8); Lymphocytes % (A) 11 %; MCH 27.5 pg (25.0-35.0); MCV 86.2 fL (80.0-100.0); Mean Platelet Volume 6.5; Monocytes # (A) 0.4 k/uL (0-1.0); Monocytes % (A) 2 %; Neutrophils # (A) 14.1 k/uL (1.3-7.7); Neutrophils % (A) 84 %; Platelet Count 468 k/uL (150-450); RBC 4.43 m/uL (3.80-5.40); WBC 16.8 k/uL (3.8-10.6)
[2019-08-22 01:58] LABS: Appearance,Urine Clear (Clear); Bilirubin,Urine Negative (Negative); Blood,Urine Trace (Negative); Color,Urine Yellow; Glucose,Urine (UA) Negative (Negative); Ketones,Urine Trace (Negative); Leukocyte Esterase,Urine Negative (Negative); Mucus,Urine Rare /hpf; Nitrite,Urine Negative (Negative); PH, Urine 7.5 (5.0-8.0); Protein,Urine Trace (Negative); RBC,Urine 2 /hpf (0-5); Specific Gravity,Urine 1.021 (1.001-1.035); Squamous Epithelial Cell,Urine 4 /hpf (0-4); Urobilinogen,Urine <2.0 mg/dL (<2.0); WBC,Urine 1 /hpf (0-5)
[2019-08-22 02:02] LABS: ALT 22 U/L (9-52); AST 24 U/L (14-36); African American GFR (CKD) >90 (>60 ml/min/1.73 sqM); Albumin 4.6 g/dL (3.5-5.0); Alkaline Phosphatase 86 U/L (38-126); Amylase 71 U/L (30-110); Anion Gap 11 mmol/L; Blood Urea Nitrogen 9 mg/dL (7-17); Calcium 9.6 mg/dL (8.4-10.2); Carbon Dioxide 25 mmol/L (22-30); Chloride 102 mmol/L (98-107); Glucose 98 mg/dL (74-99); Potassium 4.3 mmol/L (3.5-5.1); Sodium 138 mmol/L (137-145); Total Bilirubin 0.4 mg/dL (0.2-1.3); Total Protein 8.4 g/dL (6.3-8.2)
[2019-08-22] MEDS ORDERED: SODIUM CHLORIDE 0.9% 1,000 ML IV ONE (02:10)
[2019-08-22] MEDS ORDERED: ONDANSETRON 4 MG ODT STARTER PACK 2 TAB BTL PO STA (02:14)
--- NOTE | 2019-08-22 02:16 | ED ---
Nausea/Vomiting/Diarrhea HPI - General Chief complaint: Nausea/Vomiting/Diarrhea Stated complaint: Vomiting Time Seen by Provider: 08/22/19 00:38 Source: patient Mode of arrival: ambulatory Limitations: no limitations - History of Present Illness Initial comments: 23-year-old female patient presents to the emergency department today for evaluation of nausea and vomiting. Patient states symptoms started around 8:30 this evening. Patient states she has been unable to keep down any food or fluids since symptom onset. She denies any abdominal pain. Denies any constipation or diarrhea. Denies fever or chills. She denies any sick contacts or recent travel. States that everyone in the household ate the same food throughout the day known also sick. She states she did take several tests over the last couple of months which were negative. States she is currently having some vaginal bleeding and she is unsure if this is her period or not. Denies any hematuria, dysuria, urinary frequency, urinary urgency. Patient denies any recent rash, shortness breath, chest pain, diarrhea, constipation, back pain, numbness, tingling, dizziness, weakness, headache, visual changes, or any other complaints. - Related Data Home Medications Medication Instructions Recorded Confirmed [id number] Acid 1 cap PO DAILY 12/01/17 01/24/18 [-U Capsule (formulary)] Previous Rx's Medication Instructions Recorded Ondansetron [Zofran ODT] 4 mg PO Q8HR PRN #15 tab 08/22/19 Allergies Allergy/AdvReac Type Severity Reaction Status Date / Time No Known Allergies Allergy Verified 08/22/19 00:30 Review of Systems ROS Statement: Those systems with pertinent positive or pertinent negative responses have been documented in the HPI. ROS Other: All systems not noted in ROS Statement are negative. Past Medical History Past Medical History: No Reported History Additional Past Medical History / Comment(s): Obstetric history O+, abs neg, Rub Imm, RPR NR, Hep B neg, HIV NR. She had chlamydia through the but tested negative on 12/19. GBS neg. History of Any Multi-Drug Resistant Organisms: None Reported Past Surgical History: No Surgical Hx Reported Past Anesthesia/Blood Transfusion Reactions: No Reported Reaction Past Psychological History: Depression Smoking Status: Current every day smoker Past Alcohol Use History: None Reported Past Drug Use History: None Reported - Past Family History Mother Family Medical History: No Reported History General Exam Limitations: no limitations General appearance: alert, in no apparent distress, other (This is a well- developed, well-nourished adult female patient in no acute distress. Vital signs upon presentation are temperature 98.7F, pulse 79, respirations 16, blood pressure 124/77, pulse ox 100% on room air) Eye exam: Present: normal appearance, PERRL, EOMI. Absent: scleral icterus, conjunctival injection, periorbital swelling ENT exam: Present: normal exam, normal oropharynx, mucous membranes moist Neck exam: Present: normal inspection. Absent: tenderness, meningismus, lymphadenopathy Respiratory exam: Present: normal lung sounds bilaterally. Absent: respiratory distress, wheezes, rales, rhonchi, stridor Cardiovascular Exam: Present: regular rate, normal rhythm, normal heart sounds. Absent: systolic murmur, diastolic murmur, rubs, gallop, clicks GI/Abdominal exam: Present: soft, normal bowel sounds. Absent: distended, tenderness, guarding, rebound, rigid Back exam: Present: normal inspection. Absent: CVA tenderness (R), CVA tenderness (L) Neurological exam: Present: alert, oriented X3, CN II-XII intact Psychiatric exam: Present: normal affect, normal mood Skin exam: Present: warm, dry, intact, normal color. Absent: rash Course Vital Signs 08/22/19 08/22/19 00:26 02:35 Temperature 98.7 F 98.7 F Pulse Rate 79 68 Respiratory 16 18 Rate Blood Pressure 124/77 118/80 O2 Sat by Pulse 100 97 Oximetry Medical Decision Making - Medical Decision Making 23-year-old female patient presents to the emergency department today for evaluation of vomiting since 8:30 this evening. Physical examination is unremarkable. Abdomen is soft and nontender. No CVA tenderness. She is afebrile with normal vital signs. Labs reviewed and did reveal elevated white blood cell count, felt to be reactive from vomiting. test is negative. She does not have urinary tract infection. She was given IV fluids and nausea medication here in the emergency department. Upon reevaluation symptoms are improved. She'll be discharged home with a prescription for Zofran. She is educated regarding clear liquid diet. She is instructed to follow-up with her primary care physician for recheck in 1-2 days. Return parameters were discussed in detail. She verbalizes understanding and agrees with this plan. - Lab Data Result diagrams: 08/22/19 01:35 08/22/19 01:35 Lab Results 08/22/19 08/22/19 08/22/19 Range/Units 01:25 01:25 01:35 WBC (3.8-10.6) k/uL RBC (3.80-5.40) m/uL Hgb (11.4-16.0) gm/dL Hct (34.0-46.0) % MCV (80.0-100.0) fL MCH (25.0-35.0) pg MCHC (31.0-37.0) g/dL RDW (11.5-15.5) % Plt Count (150-450) k/uL Neutrophils % % Lymphocytes % % Monocytes % % Eosinophils % % Basophils % % Neutrophils # (1.3-7.7) k/uL Lymphocytes # (1.0-4.8) k/uL Monocytes # (0-1.0) k/uL Eosinophils # (0-0.7) k/uL Basophils # (0-0.2) k/uL Sodium 138 (137-145) mmol/L Potassium 4.3 (3.5-5.1) mmol/L Chloride 102 (98-107) mmol/L Carbon Dioxide 25 (22-30) mmol/L Anion Gap 11 mmol/L BUN 9 (7-17) mg/dL Creatinine 0.64 (0.52-1.04) mg/dL Est GFR (CKD-EPI)AfAm >90 (>60 ml/min/1.73 sqM) Est GFR (CKD-EPI)NonAf >90 (>60 ml/min/1.73 sqM) Glucose 98 (74-99) mg/dL Calcium 9.6 (8.4-10.2) mg/dL Total Bilirubin 0.4 (0.2-1.3) mg/dL AST 24 (14-36) U/L ALT 22 (9-52) U/L Alkaline Phosphatase 86 (38-126) U/L Total Protein 8.4 H (6.3-8.2) g/dL Albumin 4.6 (3.5-5.0) g/dL Amylase 71 (30-110) U/L Lipase 51 (23-300) U/L Urine Color Yellow Urine Appearance Clear (Clear) Urine pH 7.5 (5.0-8.0) Ur Specific [place] 1.021 (1.001-1.035) Urine Protein Trace H (Negative) Urine Glucose (UA) Negative (Negative) Urine Ketones Trace H (Negative) Urine Blood Trace H (Negative) Urine Nitrite Negative (Negative) Urine Bilirubin Negative (Negative) Urine Urobilinogen <2.0 (<2.0) mg/dL Ur Leukocyte Esterase Negative (Negative) Urine RBC 2 (0-5) /hpf Urine WBC 1 (0-5) /hpf Ur Squamous Epith Cells 4 (0-4) /hpf Urine Mucus Rare H (None) /hpf Urine HCG, Qual Not Detected (Not Detectd) 08/22/19 Range/Units 01:35 WBC 16.8 H (3.8-10.6) k/uL RBC 4.43 (3.80-5.40) m/uL Hgb 12.2 (11.4-16.0) gm/dL Hct 38.2 (34.0-46.0) % MCV 86.2 (80.0-100.0) fL MCH 27.5 (25.0-35.0) pg MCHC 32.0 (31.0-37.0) g/dL RDW 14.0 (11.5-15.5) % Plt Count 468 H (150-450) k/uL Neutrophils % 84 % Lymphocytes % 11 % Monocytes % 2 % Eosinophils % 1 % Basophils % 1 % Neutrophils # 14.1 H (1.3-7.7) k/uL Lymphocytes # 1.9 (1.0-4.8) k/uL Monocytes # 0.4 (0-1.0) k/uL Eosinophils # 0.2 (0-0.7) k/uL Basophils # 0.1 (0-0.2) k/uL Sodium (137-145) mmol/L Potassium (3.5-5.1) mmol/L Chloride (98-107) mmol/L Carbon Dioxide (22-30) mmol/L Anion Gap mmol/L BUN (7-17) mg/dL Creatinine (0.52-1.04) mg/dL Est GFR (CKD-EPI)AfAm (>60 ml/min/1.73 sqM) Est GFR (CKD-EPI)NonAf (>60 ml/min/1.73 sqM) Glucose (74-99) mg/dL Calcium (8.4-10.2) mg/dL Total Bilirubin (0.2-1.3) mg/dL AST (14-36) U/L ALT (9-52) U/L Alkaline Phosphatase (38-126) U/L Total Protein (6.3-8.2) g/dL Albumin (3.5-5.0) g/dL Amylase (30-110) U/L Lipase (23-300) U/L Urine Color Urine Appearance (Clear) Urine pH (5.0-8.0) Ur Specific [place] (1.001-1.035) Urine Protein (Negative) Urine Glucose (UA) (Negative) Urine Ketones (Negative) Urine Blood (Negative) Urine Nitrite (Negative) Urine Bilirubin (Negative) Urine Urobilinogen (<2.0) mg/dL Ur Leukocyte Esterase (Negative) Urine RBC (0-5) /hpf Urine WBC (0-5) /hpf Ur Squamous Epith Cells (0-4) /hpf Urine Mucus (None) /hpf Urine HCG, Qual (Not Detectd) Disposition Clinical Impression: Vomiting Disposition: HOME SELF-CARE Condition: Good Instructions (If sedation given, give patient instructions): Gastroenteritis (ED), Acute Nausea and Vomiting (ED) Additional Instructions: Increase fluids. Start with clear liquid diet and advance as tolerated. Take nausea medication as needed for symptom relief. Follow-up with your primary care physician for recheck in 1-2 days. Return to the emergency department immediately for any new, worsening, or concerning symptoms. Prescription sent to the [facility] on [address]. Prescriptions: Ondansetron [Zofran ODT] 4 mg PO Q8HR PRN #15 tab PRN Reason: Nausea Is patient prescribed a controlled substance at d/c from ED?: No Referrals: Inder Goncalves MD [Primary Care Provider] - 1-2 days Time of Disposition: 02:15
[2019-08-22 02:36] VITALS: BP 118/80; PULSE 68; RESP 18
== END 2019-08-22 02:36 | disposition home or self-care (01) ==
LOC: EC 00:17
DX: R11.2 Nausea with vomiting, unspecified (principal); Z32.02 Encounter for pregnancy test, result negative; F17.200 Nicotine dependence, unspecified, uncomplicated
CPT/HCPCS: 99284 ×2; 96374 ×2; 96361 ×2; 36415; 80053; 82150; 83690; 85025; 81001; 81025; J2405; S0119

== ENCOUNTER → 2019-08-24 | Outpatient (CLI) | payer OTHER ==
--- NOTE | 2019-08-25 08:10 | US ---
EXAMINATION TYPE: US pelvic complete DATE OF EXAM: 08/24/2019 COMPARISON: NONE CLINICAL HISTORY: N92.1 [place]OR[place]. Irregular menses, cramping with menses TECHNIQUE: Transabdominal (TA) Date of LMP: 08/17/19 EXAM MEASUREMENTS: Uterus: 9.2 x 4.3 x 4.9 cm Endometrial Stripe: 0.5 cm Right Ovary: 7.1 x 3.9 x 5.4 cm Left Ovary: 3.5 x 1.2 x 1.7 cm 1. Uterus: Anteverted appears wnl 2. Endometrium: appears wnl 3. Right Ovary: enlarged with cystic area = 6.0 x 4.0 x 4.5cm Spectral, color and waveform doppler imaging shows good arterial and venous flow within the right o vary; there is no evidence for ovarian torsion within right ovary 4. Left Ovary: follicles noted 5. Bilateral Adnexa: wnl 6. Posterior cul-de-sac: wnl IMPRESSION: 1. 6.0 cm simple appearing right ovarian cyst. The size of the cyst predisposes this patient to ovari an torsion although there is no evidence of ovarian torsion at this time. Repeat pelvic ultrasound wo uld be recommended in 3 menstrual cycles to ensure resolution. 2. Endometrial thickness is within normal limits of size.
== END | disposition home or self-care (01) ==
LOC: RADUSWWP 16:20
PROVIDERS: ATTEND Obstetrics & Gynecology
DX: N83.291 Other ovarian cyst, right side (principal)
CPT/HCPCS: 76856

== ENCOUNTER 2020-09-03 19:19 | Emergency (ER) | payer OTHER ==
[2020-09-03 19:39] VITALS: BP 120/78; PULSE 83; RESP 16; TEMP 99.7
[2020-09-03 20:28] LABS: Basophils # (A) 0.1 k/uL (0-0.2); Basophils % (A) 1 %; Eosinophils # (A) 0.3 k/uL (0-0.7); Eosinophils % (A) 3 %; HCT 42.2 % (34.0-46.0); HGB 14.1 gm/dL (11.4-16.0); Lymphocytes % (A) 23 %; MCH 29.7 pg (25.0-35.0); MCHC 33.3 g/dL (31.0-37.0); MCV 89.1 fL (80.0-100.0); Mean Platelet Volume 7.1; Monocytes # (A) 0.5 k/uL (0-1.0); Monocytes % (A) 4 %; Neutrophils % (A) 68 %; Platelet Count 411 k/uL (150-450); RBC 4.73 m/uL (3.80-5.40); RDW 13.3 % (11.5-15.5); WBC 13.1 k/uL (3.8-10.6)
[2020-09-03 20:31] LABS: Appearance,Urine Clear (Clear); Bilirubin,Urine Negative (Negative); Blood,Urine Negative (Negative); Color,Urine Light Yellow; Glucose,Urine (UA) Negative (Negative); Ketones,Urine Negative (Negative); Leukocyte Esterase,Urine Moderate (Negative); Mucus,Urine Rare /hpf; Nitrite,Urine Negative (Negative); PH, Urine 6.5 (5.0-8.0); Protein,Urine Negative (Negative); RBC,Urine <1 /hpf (0-5); Specific Gravity,Urine 1.009 (1.001-1.035); Squamous Epithelial Cell,Urine <1 /hpf (0-4); Urobilinogen,Urine <2.0 mg/dL (<2.0); WBC,Urine 1 /hpf (0-5)
[2020-09-03 20:37] LABS: INR 1.1 (<1.2); Partial Thromboplastin Time 25.7 sec (22.0-30.0); Prothrombin Time 10.8 sec (9.0-12.0)
[2020-09-03 20:40] LABS: ALT 22 U/L (4-34); AST 31 U/L (14-36); African American GFR (CKD) >90 (>60 ml/min/1.73 sqM); Albumin 4.9 g/dL (3.5-5.0); Alkaline Phosphatase 78 U/L (38-126); Anion Gap 10 mmol/L; Blood Urea Nitrogen 8 mg/dL (7-17); Calcium 9.4 mg/dL (8.4-10.2); Carbon Dioxide 25 mmol/L (22-30); Chloride 102 mmol/L (98-107); Glucose 81 mg/dL (74-99); Non-African American GFR(CKD) >90 (>60 ml/min/1.73 sqM); Sodium 137 mmol/L (137-145); Total Bilirubin 0.5 mg/dL (0.2-1.3); Total Protein 8.6 g/dL (6.3-8.2)
[2020-09-03 20:57] LABS: HCG,Quantitative Serum 2457.8 mIU/mL
[2020-09-03 21:02] LABS: Potassium 4.2 mmol/L (3.5-5.1)
--- NOTE | 2020-09-03 21:18 | US ---
EXAMINATION TYPE: Transabdominal DATE OF EXAM: 09/03/2020 9:05 PM COMPARISON: NONE CLINICAL HISTORY: pain. Spotting EXAM PERFORMED: Transabdominal (TA) EXAM MEASUREMENTS: GESTATIONAL AGE / DATING Physician Established: Not yet established Dates by LMP: 07/03/2020 (8 weeks/6 days) EDC: 04/09/2021 Dates by First Scan: No previous this is first scan Dates by Current Scan for: Unable to date by charlee bryson's study MATERNAL ANATOMY Uterus: 9.3 x 4.9 x 6.9 Right Ovary: 3.7 x 2.8 x 2.4 cm Left Ovary: 2.8 x 1.5 x 1.3 cm Post CDS / Adnexa: wnl Presence of free fluid: no Presence of corpus luteal cyst: yes right Presence of subchorionic bleed: no GESTATION / SURVEY MSD: 0.39 cm To small to date. IUP: No IUP seen at this time Beta HcG (if available): Not available at this time Small gestational sac seen no pole seen at this time. IMPRESSION: Possible early intrauterine gestation. Follow-up recommended in 10-14 days to confirm a living fetus.
--- NOTE | 2020-09-03 21:57 | ED ---
General Adult HPI - General Chief complaint: Vaginal Bleeding Stated complaint: Vaginal Bleeding, Source: patient Mode of arrival: ambulatory Limitations: no limitations - History of Present Illness Initial comments: 24-year-old female who is who presents emergency Department with vaginal bleeding. Patient reports that her last menstrual cycle was around July 03. States that she does have irregular cycles. Within the past week she did take a test was reportedly positive. Followed up with the health clinic and had a urinalysis which also showed that she was . Denies having any laboratory studies performed. She does have an ultrasound scheduled for this upcoming . Yesterday night she began having a small amount of spotting. Today she began having some lower abdominal cramping and the spotting became more consistent. Because of this she decided to come to the emergency room. Denies any vaginal discharge or concern for sexually transmitted infections. No changes in her urination or stooling. No abdominal trauma. Denies previous history of miscarriage. Denies significant abdominal pain. No adnexal pain. No fevers or chills. Denies any nausea or vomiting. No lightheadedness. No other alleviating, Perceptin or modifying factors - Related Data Home Medications Medication Instructions Recorded Confirmed Krc-Bsum-Frost Acid 1 cap PO DAILY 12/01/17 01/24/18 [-U Capsule (formulary)] Previous Rx's Medication Instructions Recorded Ondansetron [Zofran ODT] 4 mg PO Q8HR PRN #15 tab 08/22/19 Allergies Allergy/AdvReac Type Severity Reaction Status Date / Time No Known Allergies Allergy Verified 08/22/19 00:30 Review of Systems ROS Statement: Those systems with pertinent positive or pertinent negative responses have been documented in the HPI. ROS Other: All systems not noted in ROS Statement are negative. Past Medical History Past Medical History: No Reported History Additional Past Medical History / Comment(s): Obstetric history O+, abs neg, Rub Imm, RPR NR, Hep B neg, HIV NR. She had chlamydia through the but tested negative on 12/19. GBS neg. History of Any Multi-Drug Resistant Organisms: None Reported Past Surgical History: No Surgical Hx Reported Past Anesthesia/Blood Transfusion Reactions: No Reported Reaction Past Psychological History: Depression Smoking Status: Current every day smoker Past Alcohol Use History: None Reported Past Drug Use History: None Reported - Past Family History Mother Family Medical History: No Reported History General Exam Limitations: no limitations Course Vital Signs 09/03/20 19:36 Temperature 99.7 F H Pulse Rate 83 Respiratory 16 Rate Blood Pressure 120/78 O2 Sat by Pulse 99 Oximetry Medical Decision Making - Medical Decision Making Upon arrival the patient was placed into room 21. A thorough history and physical exam was performed. Laboratory says were conducted and the patient went for a ultrasound. Laboratory studies are remarkable for a beta Quant of 2457. Ultrasound demonstrates a small gestational sac with no pole. Patient is informed of these findings. Informed that her ultrasound does not demonstrate complete signs of an intrauterine . At this time she must have a repeat beta Quant drawn in 48 hours. I will provide her with a prescription have this done in our outpatient lab. She is going be following with Dr. Trejo. These results will be sent to him. She needs a repeat ultrasound. She does have one scheduled on . I informed the patient if she has any new or worsening symptoms that she should return to the emergency room. Patient was in understanding of this and she was discharged home in stable condition - Lab Data Result diagrams: 09/03/20 20:04 09/03/20 20:04 Lab Results 09/03/20 09/03/20 09/03/20 Range/Units 20:04 20:04 20:04 WBC 13.1 H (3.8-10.6) k/uL RBC 4.73 (3.80-5.40) m/uL Hgb 14.1 (11.4-16.0) gm/dL Hct 42.2 (34.0-46.0) % MCV 89.1 (80.0-100.0) fL MCH 29.7 (25.0-35.0) pg MCHC 33.3 (31.0-37.0) g/dL RDW 13.3 (11.5-15.5) % Plt Count 411 (150-450) k/uL Neutrophils % 68 % Lymphocytes % 23 % Monocytes % 4 % Eosinophils % 3 % Basophils % 1 % Neutrophils # 9.0 H (1.3-7.7) k/uL Lymphocytes # 3.0 (1.0-4.8) k/uL Monocytes # 0.5 (0-1.0) k/uL Eosinophils # 0.3 (0-0.7) k/uL Basophils # 0.1 (0-0.2) k/uL PT 10.8 (9.0-12.0) sec INR 1.1 (<1.2) APTT 25.7 (22.0-30.0) sec Sodium (137-145) mmol/L Potassium (3.5-5.1) mmol/L Chloride (98-107) mmol/L Carbon Dioxide (22-30) mmol/L Anion Gap mmol/L BUN (7-17) mg/dL Creatinine (0.52-1.04) mg/dL Est GFR (CKD-EPI)AfAm (>60 ml/min/1.73 sqM) Est GFR (CKD-EPI)NonAf (>60 ml/min/1.73 sqM) Glucose (74-99) mg/dL Calcium (8.4-10.2) mg/dL Total Bilirubin (0.2-1.3) mg/dL AST (14-36) U/L ALT (4-34) U/L Alkaline Phosphatase (38-126) U/L Total Protein (6.3-8.2) g/dL Albumin (3.5-5.0) g/dL HCG, Quant mIU/mL Urine Color Light Yellow Urine Appearance Clear (Clear) Urine pH 6.5 (5.0-8.0) Ur Specific [place] 1.009 (1.001-1.035) Urine Protein Negative (Negative) Urine Glucose (UA) Negative (Negative) Urine Ketones Negative (Negative) Urine Blood Negative (Negative) Urine Nitrite Negative (Negative) Urine Bilirubin Negative (Negative) Urine Urobilinogen <2.0 (<2.0) mg/dL Ur Leukocyte Esterase Moderate H (Negative) Urine RBC <1 (0-5) /hpf Urine WBC 1 (0-5) /hpf Ur Squamous Epith Cells <1 (0-4) /hpf Urine Mucus Rare H (None) /hpf Blood Type Blood Type Recheck Bld Type Recheck Status 09/03/20 09/03/20 Range/Units 20:04 20:04 WBC (3.8-10.6) k/uL RBC (3.80-5.40) m/uL Hgb (11.4-16.0) gm/dL Hct (34.0-46.0) % MCV (80.0-100.0) fL MCH (25.0-35.0) pg MCHC (31.0-37.0) g/dL RDW (11.5-15.5) % Plt Count (150-450) k/uL Neutrophils % % Lymphocytes % % Monocytes % % Eosinophils % % Basophils % % Neutrophils # (1.3-7.7) k/uL Lymphocytes # (1.0-4.8) k/uL Monocytes # (0-1.0) k/uL Eosinophils # (0-0.7) k/uL Basophils # (0-0.2) k/uL PT (9.0-12.0) sec INR (<1.2) APTT (22.0-30.0) sec Sodium 137 (137-145) mmol/L Potassium 4.2 (3.5-5.1) mmol/L Chloride 102 (98-107) mmol/L Carbon Dioxide 25 (22-30) mmol/L Anion Gap 10 mmol/L BUN 8 (7-17) mg/dL Creatinine 0.67 (0.52-1.04) mg/dL Est GFR (CKD-EPI)AfAm >90 (>60 ml/min/1.73 sqM) Est GFR (CKD-EPI)NonAf >90 (>60 ml/min/1.73 sqM) Glucose 81 (74-99) mg/dL Calcium 9.4 (8.4-10.2) mg/dL Total Bilirubin 0.5 (0.2-1.3) mg/dL AST 31 (14-36) U/L ALT 22 (4-34) U/L Alkaline Phosphatase 78 (38-126) U/L Total Protein 8.6 H (6.3-8.2) g/dL Albumin 4.9 (3.5-5.0) g/dL HCG, Quant 2457.8 mIU/mL Urine Color Urine Appearance (Clear) Urine pH (5.0-8.0) Ur Specific [place] (1.001-1.035) Urine Protein (Negative) Urine Glucose (UA) (Negative) Urine Ketones (Negative) Urine Blood (Negative) Urine Nitrite (Negative) Urine Bilirubin (Negative) Urine Urobilinogen (<2.0) mg/dL Ur Leukocyte Esterase (Negative) Urine RBC (0-5) /hpf Urine WBC (0-5) /hpf Ur Squamous Epith Cells (0-4) /hpf Urine Mucus (None) /hpf Blood Type O Positive Blood Type Recheck O Pos Bld Type Recheck Status No Disposition Clinical Impression: Threatened miscarriage, of unknown anatomic location Disposition: HOME SELF-CARE Condition: Stable Instructions (If sedation given, give patient instructions): Threatened Miscarriage (ED) Additional Instructions: Please follow-up with your OBGYN. You need to come back to the lab to have your labs drawn on Friday. Come to the lab here and we will send the results to Dr. Trejo. You need a repeat ultrasound within the next 7 to 10 days. Keep your appointment on . Return to the emergency room for any new or worsening symptoms Is patient prescribed a controlled substance at d/c from ED?: No Referrals: Inder Goncalves MD [Primary Care Provider] - 1-2 days Time of Disposition: 22:01
== END 2020-09-03 22:08 | disposition home or self-care (01) ==
LOC: EC 19:19
DX: O20.0 Threatened abortion (principal); F17.200 Nicotine dependence, unspecified, uncomplicated; Z3A.00 Weeks of gestation of pregnancy not specified
CPT/HCPCS: 36415; 76801; 80053; 81001; 84702; 85025; 85610; 85730; 86900; 86901; 99284

== ENCOUNTER → 2020-09-05 | Outpatient (CLI) | payer OTHER | END | disposition home or self-care (01) | LOC: LABWHC1 12:32 | PROVIDERS: ATTEND Emergency Medicine | DX: O20.0 Threatened abortion (principal) | CPT/HCPCS: 36415; 84702 ==

== ENCOUNTER → 2020-09-12 | Outpatient (CLI) | payer OTHER | END | disposition home or self-care (01) | LOC: LABWHC1 14:17 | PROVIDERS: ATTEND Obstetrics & Gynecology | DX: Z32.00 Encounter for pregnancy test, result unknown (principal) | CPT/HCPCS: 36415; 84702 ==

== ENCOUNTER 2020-10-08 20:53 | Emergency (ER) | payer OTHER ==
[2020-10-08 21:04] VITALS: BP 126/78; PULSE 94; RESP 18; TEMP 97.6
--- NOTE | 2020-10-08 21:40 | ED ---
Female Urogenital HPI - General Chief complaint: Vaginal Bleeding Stated complaint: Vaginal Bleeding(9 weeks ) Time Seen by Provider: 10/08/20 21:11 Source: patient, RN notes reviewed, old records reviewed Mode of arrival: ambulatory Limitations: no limitations - History of Present Illness Initial comments: Patient's 24-year-old female who he 3 P2 proximally 9 weeks . She presents emergency department today with complaints of vaginal bleeding or abdominal cramping starting at 6:30 PM. Patient states that she follows with Dr. Trejo. She denies any significant clotting. She reports that she's noticed the spotting only with wiping. She denies dysuria. - Related Data Home Medications Medication Instructions Recorded Confirmed Anl-Mdfu-Ghhnx Acid 1 cap PO HS 12/01/17 10/08/20 [-U Capsule (formulary)] Allergies Allergy/AdvReac Type Severity Reaction Status Date / Time No Known Allergies Allergy Verified 10/08/20 21:49 Review of Systems ROS Statement: Those systems with pertinent positive or pertinent negative responses have been documented in the HPI. ROS Other: All systems not noted in ROS Statement are negative. Past Medical History Past Medical History: No Reported History Additional Past Medical History / Comment(s): Obstetric history O+, abs neg, Rub Imm, RPR NR, Hep B neg, HIV NR. She had chlamydia through the but tested negative on 12/19. GBS neg. History of Any Multi-Drug Resistant Organisms: None Reported Past Surgical History: No Surgical Hx Reported Past Anesthesia/Blood Transfusion Reactions: No Reported Reaction Past Psychological History: Depression Smoking Status: Current every day smoker Past Alcohol Use History: None Reported Past Drug Use History: None Reported - Past Family History Mother Family Medical History: No Reported History General Exam - General Exam Comments Initial Comments: 24-year-old female. Alert and oriented. No distress. Limitations: no limitations General appearance: alert, in no apparent distress Head exam: Present: atraumatic, normocephalic, normal inspection Eye exam: Present: normal appearance, PERRL, EOMI. Absent: scleral icterus, conjunctival injection, periorbital swelling ENT exam: Present: normal exam, mucous membranes moist Neck exam: Present: normal inspection. Absent: tenderness, meningismus, lymphadenopathy Respiratory exam: Present: normal lung sounds bilaterally. Absent: respiratory distress, wheezes, rales, rhonchi, stridor Cardiovascular Exam: Present: regular rate, normal rhythm, normal heart sounds. Absent: systolic murmur, diastolic murmur, rubs, gallop, clicks GI/Abdominal exam: Present: soft External exam: Present: normal external exam Speculum exam: Present: vaginal discharge, vaginal bleeding. Absent: normal speculum exam By manual exam: Present: normal by manual exam. Absent: adnexal tenderness Extremities exam: Present: normal inspection, full ROM, normal capillary refill. Absent: tenderness, pedal edema, joint swelling, calf tenderness Back exam: Present: normal inspection Neurological exam: Present: alert, oriented X3, CN II-XII intact Psychiatric exam: Present: normal affect, normal mood Course Vital Signs 10/08/20 21:01 Temperature 97.6 F Pulse Rate 94 Respiratory 18 Rate Blood Pressure 126/78 O2 Sat by Pulse 100 Oximetry Medical Decision Making - Medical Decision Making 24-year-old female approximately 10 weeks . She presents for abnormal vaginal bleeding today. She does have evidence of discharge and pelvic exam. No adnexal tenderness. She has a positive Trichomonas test. Patient with test treated for chlamydia and gonorrhea and trichomonas at this time. I discussed the Patient needs to follow-up with her TERRITORY REPRESENTATIVE is ultrasound showed a subchorionic hemorrhage for viable IUP. I discussed return parameters. I discussed the Patient to avoid intercourse for 2 weeks, no heavy lifting and pelvic rest. Discussed that she needs to have all partners treated. - Lab Data Lab Results 10/08/20 10/08/20 10/08/20 Range/Units 21:28 21:28 21:28 HCG, Quant 71390.5 mIU/mL Urine Color Yellow Urine Appearance Clear (Clear) Urine pH 6.0 (5.0-8.0) Ur Specific [place] 1.023 (1.001-1.035) Urine Protein Negative (Negative) Urine Glucose (UA) Negative (Negative) Urine Ketones Negative (Negative) Urine Blood Small H (Negative) Urine Nitrite Negative (Negative) Urine Bilirubin Negative (Negative) Urine Urobilinogen <2.0 (<2.0) mg/dL Ur Leukocyte Esterase Large H (Negative) Urine RBC 3 (0-5) /hpf Urine WBC 8 H (0-5) /hpf Ur Squamous Epith Cells 4 (0-4) /hpf Urine Mucus Occasional H (None) /hpf Trichomonas Ag (Rapid) Positive H (Negative) - Radiology Data Radiology results: report reviewed Ultrasound gestational age is 10 weeks 1 day. The estimated delivery date is 05/05/2021. Small gestational fluid collection subchorionic hemorrhage measuring 16 x 12 mm. Heart rate was 1 74 bpm Disposition Clinical Impression: Trichomonal vaginitis during , 10 weeks gestation of , Subchorionic bleed Disposition: HOME SELF-CARE Condition: Good Instructions (If sedation given, give patient instructions): Sexually Transmitted Diseases (ED), Subchorionic Hemorrhage (ED) Additional Instructions: All sexual partner should be treated for sexual transmitted infection. Abstain from intercourse for 2 weeks. Patient should follow-up with your TERRITORY REPRESENTATIVE in regards to subchorionic bleed. Is patient prescribed a controlled substance at d/c from ED?: No Referrals: Inder Goncalves MD [Primary Care Provider] - 1-2 days Time of Disposition: 22:47
[2020-10-08 21:42] LABS: Appearance,Urine Clear (Clear); Bilirubin,Urine Negative (Negative); Blood,Urine Small (Negative); Color,Urine Yellow; Glucose,Urine (UA) Negative (Negative); Ketones,Urine Negative (Negative); Leukocyte Esterase,Urine Large (Negative); Mucus,Urine Occasional /hpf; Nitrite,Urine Negative (Negative); Protein,Urine Negative (Negative); RBC,Urine 3 /hpf (0-5); Specific Gravity,Urine 1.023 (1.001-1.035); Squamous Epithelial Cell,Urine 4 /hpf (0-4); Urobilinogen,Urine <2.0 mg/dL (<2.0); WBC,Urine 8 /hpf (0-5)
--- NOTE | 2020-10-08 22:33 | US ---
EXAMINATION TYPE: Transabdominal DATE OF EXAM: 10/08/2020 10:15 PM COMPARISON: NONE CLINICAL HISTORY: pain. spotting today EXAM PERFORMED: OBTA EXAM MEASUREMENTS: GESTATIONAL AGE / DATING Physician Established: Not yet established Dates by LMP: LMP unknown Dates by First Scan: too early to date Dates by Current Scan for: (10 weeks/1 days) EDC: 05/05/2021 MATERNAL ANATOMY Uterus: 11.5 x 8.3 x 7.0cm Right Ovary: 2.5 x 2.0 x 2.1cm Left Ovary: 4.5 x 2.5 x 2.1cm Post CDS / Adnexa: wnl Presence of free fluid: no Presence of corpus luteal cyst: not seen Presence of subchorionic bleed: 1.4cm bleed seen superior to gestational sac GESTATION / SURVEY CRL: 3.2cm (10 weeks/1 days) MSD: wnl Heart Rate: 174 bpm Rhythm: Normal IUP: Viable IUP Date of LMP: unknown Beta HcG (if available): pending IMPRESSION: The ultrasound gestational age is 10 weeks and 1 day. The JUSTIN is 05/05/2021. There is small. Gestation al fluid collection. This measures 16 x 12 mm.
[2020-10-08] MEDS ORDERED: cefTRIAXone 250 MG VIAL IM STA (22:44)
[2020-10-08] MEDS ORDERED: metroNIDAZOLE 500 MG TAB PO STA (22:45)
[2020-10-08] MEDS ORDERED: AZITHROMYCIN 500 MG TAB PO STA (22:45)
== END 2020-10-08 23:11 | disposition home or self-care (01) ==
LOC: EC 20:53
DX: O23.591 Infection of other part of genital tract in pregnancy, first trimester (principal); A59.01 Trichomonal vulvovaginitis; O41.8X10 Other specified disorders of amniotic fluid and membranes, first trimester, not applicable or unspecified; O99.331 Smoking (tobacco) complicating pregnancy, first trimester; F17.200 Nicotine dependence, unspecified, uncomplicated; Z3A.10 10 weeks gestation of pregnancy
CPT/HCPCS: 36415; 81001; 84702; 87808; 87491; 87591; 76801; 99284; 96372; J0696

== ENCOUNTER 2021-10-06 15:23 | Emergency (ER) | payer OTHER ==
[2021-10-06 16:06] VITALS: BP 146/72; PULSE 84; RESP 20; TEMP 98.7
[2021-10-06] MEDS ORDERED: KETOROLAC 30 MG/ML 1 ML VIAL IM STA (16:50)
--- NOTE | 2021-10-06 16:54 | ED ---
General Adult HPI - General Chief complaint: Extremity Injury, Upper Stated complaint: numbness in hand Time Seen by Provider: 10/06/21 16:45 Source: patient, RN notes reviewed Mode of arrival: ambulatory Limitations: no limitations - History of Present Illness Initial comments: Well-appearing 24-year-old female, alert and oriented 4, presents to the e mergency room with complaints of right hand numbness intermittently for the past 2 weeks. She states that she works at [employer] all day. She states that she has been working a lot and they have been busy. She states that the pain is worse when she is at work. When she immobilizes it, it does get better. She states that it's been worse over the past 3 days. She denies any injuries. There is no swelling. She denies any fevers. No previous medical history no medications on a daily basis. -: week(s) (2) Location: right, upper extremity (wrist) Radiation: proximal (forearm) Severity scale (1-10): 6 Quality: aching Consistency: intermittent Improves with: rest Worsens with: movement Associated Symptoms: denies other symptoms Treatments Prior to Arrival: none - Related Data Home Medications Medication Instructions Recorded Confirmed Yak-Cjyd-Ibdxt Acid 1 cap PO HS 12/01/17 10/08/20 [-U Capsule (formulary)] Previous Rx's Medication Instructions Recorded Ibuprofen [Motrin] 600 mg PO Q8HR PRN #30 tab 10/06/21 Allergies Allergy/AdvReac Type Severity Reaction Status Date / Time No Known Allergies Allergy Verified 10/06/21 16:06 Review of Systems ROS Statement: Those systems with pertinent positive or pertinent negative responses have been documented in the HPI. ROS Other: All systems not noted in ROS Statement are negative. Past Medical History Past Medical History: No Reported History Additional Past Medical History / Comment(s): Obstetric history O+, abs neg, Rub Imm, RPR NR, Hep B neg, HIV NR. She had chlamydia through the but tested negative on 12/19. GBS neg. History of Any Multi-Drug Resistant Organisms: None Reported Past Surgical History: No Surgical Hx Reported Past Anesthesia/Blood Transfusion Reactions: No Reported Reaction Past Psychological History: Depression Smoking Status: Current every day smoker Past Alcohol Use History: None Reported Past Drug Use History: None Reported - Past Family History Mother Family Medical History: No Reported History General Exam Limitations: no limitations General appearance: alert, in no apparent distress Eye exam: Present: normal appearance, EOMI ENT exam: Present: normal exam, normal oropharynx, mucous membranes moist Neck exam: Present: normal inspection, full ROM. Absent: tenderness, meningismus, lymphadenopathy, thyromegaly Respiratory exam: Present: normal lung sounds bilaterally. Absent: respiratory distress, wheezes, rales, rhonchi, stridor, chest wall tenderness, accessory muscle use, decreased breath sounds Cardiovascular Exam: Present: regular rate, normal rhythm, normal heart sounds. Absent: systolic murmur, diastolic murmur, rubs, gallop, clicks Extremities exam: Present: normal inspection, full ROM, normal capillary refill, other (tamera test positive). Absent: tenderness, pedal edema, joint swelling, calf tenderness Neurological exam: Present: alert, oriented X3 Psychiatric exam: Present: normal affect, normal mood Skin exam: Present: warm, dry, intact, normal color. Absent: rash, cyanosis, diaphoretic Course Vital Signs 10/06/21 16:04 Temperature 98.7 F Pulse Rate 84 Respiratory 20 Rate Blood Pressure 146/72 O2 Sat by Pulse 99 Oximetry Medical Decision Making - Medical Decision Making This is a well-appearing 25-year-old female with no medical history. She states that she has been having intermittent tingling to her thumb, index and middle fingers off and on for the last couple weeks. She states that she has been doing repetitive tasks at work and notices that her symptoms are worse while she is working. She states that she does get relief with rest. She denies any trauma. She has full mobility. Tamera test is positive. This is likely de Quervain's tenosynovitis. She was given a shot of Toradol in the emergency room and directed take Motrin every 8 hours for the next 3 days. Wear Velcro splint and/or Maximo wrap, rest ice and elevate. Follow-up with primary care doctor next week. Disposition Clinical Impression: De Quervain's tenosynovitis, right Disposition: HOME SELF-CARE Instructions (If sedation given, give patient instructions): Tenosynovitis (ED) Additional Instructions: Rest, ice, use Maximo wrap or Velcro splint and elevate while at home. Take Motrin every 8 hours for the next 3 days. Follow-up with primary care doctor next week. Return to emergency room with any new or concerning symptoms. Prescriptions: Ibuprofen [Motrin] 600 mg PO Q8HR PRN #30 tab PRN Reason: Pain Is patient prescribed a controlled substance at d/c from ED?: No Referrals: Inder Goncalves MD [Primary Care Provider] - 1-2 days Time of Disposition: 17:30
== END 2021-10-06 18:11 | disposition home or self-care (01) ==
LOC: EC 15:23
DX: M65.4 Radial styloid tenosynovitis [de Quervain] (principal); F17.200 Nicotine dependence, unspecified, uncomplicated; B20 Human immunodeficiency virus [HIV] disease
CPT/HCPCS: 99283; 96372; J1885

== ENCOUNTER 2021-11-04 20:27 | Emergency (ER) | payer OTHER ==
[2021-11-04 20:50] VITALS: RESP 18
--- NOTE | 2021-11-04 20:50 | ED ---
General Adult HPI - General Source: patient, RN notes reviewed Mode of arrival: ambulatory Limitations: no limitations <Liza Escobar - Last Filed: 11/05/21 00:21> <Nidhi Meier - Last Filed: 11/07/21 00:20> - General Chief complaint: Recheck/Abnormal Lab/Rx Stated complaint: Wants covid test,Exposure Time Seen by Provider: 11/04/21 20:37 - History of Present Illness Initial comments: 25-year-old female presents to the emergency department requesting a COVID-19 test. Patient states she was exposed to Covid last week at work and her boss is requiring a test prior to coming in tomorrow. Patient denies any symptoms stating she feels perfectly fine. Denies fever, chills, headache, chest pain, shortness of breath, cough, congestion, difficulty breathing, abdominal pain, nausea, vomiting, diarrhea, constipation, hematuria, or dysuria. (Liza Escobar) - Related Data Home Medications Medication Instructions Recorded Confirmed PARoxetine HCL 20 mg PO HS 11/04/21 11/04/21 Previous Rx's Medication Instructions Recorded Ibuprofen [Motrin] 600 mg PO Q8HR PRN #30 tab 10/06/21 Allergies Allergy/AdvReac Type Severity Reaction Status Date / Time No Known Allergies Allergy Verified 11/04/21 21:31 Review of Systems ROS Other: All systems not noted in ROS Statement are negative. <Liza Escobar - Last Filed: 11/05/21 00:21> ROS Other: All systems not noted in ROS Statement are negative. <Nidhi Meier - Last Filed: 11/07/21 00:20> ROS Statement: Those systems with pertinent positive or pertinent negative responses have been documented in the HPI. Past Medical History Past Medical History: No Reported History Additional Past Medical History / Comment(s): Obstetric history O+, abs neg, Rub Imm, RPR NR, Hep B neg, HIV NR. She had chlamydia through the but tested negative on 12/19. GBS neg. History of Any Multi-Drug Resistant Organisms: None Reported Past Surgical History: No Surgical Hx Reported Past Anesthesia/Blood Transfusion Reactions: No Reported Reaction Past Psychological History: Depression Smoking Status: Current every day smoker Past Alcohol Use History: None Reported Past Drug Use History: None Reported - Past Family History Mother Family Medical History: No Reported History <Liza Escobar - Last Filed: 11/05/21 00:21> General Exam Limitations: no limitations (Well-developed, well-nourished female in no acute distress. Initial temperature 98.2, pulse 74, respirations 16, blood pressure 126/76, pulse ox 98% on room air.) General appearance: alert, in no apparent distress ENT exam: Present: normal exam, normal oropharynx, mucous membranes moist Respiratory exam: Present: normal lung sounds bilaterally. Absent: respiratory distress, wheezes, rales, rhonchi, stridor Cardiovascular Exam: Present: regular rate, normal rhythm, normal heart sounds. Absent: systolic murmur, diastolic murmur, rubs, gallop, clicks GI/Abdominal exam: Present: soft, normal bowel sounds. Absent: distended, tenderness, guarding, rebound, rigid Neurological exam: Present: alert, oriented X3, CN II-XII intact Psychiatric exam: Present: normal affect, normal mood Skin exam: Present: warm, dry, intact, normal color. Absent: rash <BenitogregLiza albert - Last Filed: 11/05/21 00:21> Course Vital Signs 11/04/21 11/04/21 11/04/21 20:29 20:47 22:04 Temperature 98.2 F Pulse Rate 74 70 Respiratory 16 18 18 Rate Blood Pressure 126/76 O2 Sat by Pulse 98 98 Oximetry 11/04/21 11/04/21 23:00 23:25 Temperature 98.6 F Pulse Rate 59 L 60 Respiratory 18 18 Rate Blood Pressure 112/68 115/64 O2 Sat by Pulse 97 98 Oximetry Medical Decision Making <LuzLiza - Last Filed: 11/05/21 00:21> <Nidhi Meier - Last Filed: 11/07/21 00:20> - Medical Decision Making This is a 25-year-old female who presents to the emergency department requesting a Covid test due to a work exposure. Patient has had no symptoms and her physical exam findings are unremarkable. Covid test is positive. Monoclonal antibody infusion option was discussed with patient. She is agreeable to receiving the infusion and tolerated it with no adverse side effects. Patient will be discharged home to follow up with her PCP as needed. Instructed to quarantine for the next 10 days. Return parameters were discussed. Patient verbalizes understanding and agrees with this plan. This patient's care was discussed with my attending Dr. Meier. (Liza Escobar) I was available for consultation in the emergency department. The history and physical exam were done by the midlevel provider. I was consulted for this patients care. I reviewed the case with the midlevel provider and based on their presentation of the patient, I agree with the assessment, medical decision making and plan of care as documented. Chart was dictated using [employer] dictation software. Attempts were made to correct any dictation errors however some typographical errors may persist. (Nidhi Meier) - Lab Data Lab Results 11/04/21 Range/Units 20:34 Coronavirus (PCR) Detected A (Not Detectd) Disposition Is patient prescribed a controlled substance at d/c from ED?: No Time of Disposition: 23:25 <Liza Escobar - Last Filed: 11/05/21 00:21> <Nidhi Meier - Last Filed: 11/07/21 00:20> Clinical Impression: COVID-19 Disposition: HOME SELF-CARE Condition: Stable Instructions (If sedation given, give patient instructions): Coronavirus Disease 2019 (COVID-19) Additional Instructions: Use should quarantine for the next 10 days. Alternate Tylenol and Motrin for fever control and body aches. Take vitamins C, D, and zinc. Follow-up with her primary care provider for a recheck via video or telephone. Return to the emergency department with any new, worsening, or concerning symptoms. Referrals: Inder Goncalves MD [Primary Care Provider] - 1-2 days
[2021-11-04] MEDS ORDERED: BAMLANIVIMAB (EUA) 700 MG, ETESEVIMAB (EUA) 1,400 MG in SODIUM CHLORIDE 0.9% 50 ML IVPB ONE (21:30)
[2021-11-04] MEDS ORDERED: SODIUM CHLORIDE 0.9% 50 ML IVPB ONE (21:30)
[2021-11-04 23:27] VITALS: BP 115/64; PULSE 60; TEMP 98.6
== END 2021-11-04 23:26 | disposition home or self-care (01) ==
LOC: EC 20:27
DX: U07.1 COVID-19 (principal); F17.200 Nicotine dependence, unspecified, uncomplicated; B20 Human immunodeficiency virus [HIV] disease
CPT/HCPCS: 87635; 99283; J3490

== ENCOUNTER 2022-02-27 18:55 | Emergency (ER) | payer OTHER ==
[2022-02-27 20:58] LABS: Basophils # (A) 0.1 k/uL (0-0.2); Basophils % (A) 1 %; Eosinophils # (A) 0.2 k/uL (0-0.7); Eosinophils % (A) 2 %; HCT 42.2 % (34.0-46.0); HGB 13.6 gm/dL (11.4-16.0); Lymphocytes # (A) 2.9 k/uL (1.0-4.8); Lymphocytes % (A) 27 %; MCH 28.6 pg (25.0-35.0); MCHC 32.1 g/dL (31.0-37.0); MCV 89.2 fL (80.0-100.0); Mean Platelet Volume 7.3; Monocytes # (A) 0.6 k/uL (0-1.0); Monocytes % (A) 5 %; Neutrophils # (A) 7.1 k/uL (1.3-7.7); Neutrophils % (A) 64 %; Platelet Count 403 k/uL (150-450); RBC 4.73 m/uL (3.80-5.40); WBC 11.1 k/uL (3.8-10.6)
[2022-02-27 21:02] LABS: Appearance,Urine Cloudy (Clear); Bilirubin,Urine Negative (Negative); Blood,Urine Negative (Negative); Color,Urine Yellow; Glucose,Urine (UA) Negative (Negative); Ketones,Urine Negative (Negative); Leukocyte Esterase,Urine Small (Negative); Mucus,Urine Many /hpf; Nitrite,Urine Negative (Negative); PH, Urine 7.5 (5.0-8.0); Protein,Urine Trace (Negative); RBC,Urine 7 /hpf (0-5); Specific Gravity,Urine 1.029 (1.001-1.035); Squamous Epithelial Cell,Urine 3 /hpf (0-4); WBC,Urine 3 /hpf (0-5)
[2022-02-27 21:03] LABS: ALT 16 U/L (4-34); AST 25 U/L (14-36); African American GFR (CKD) >90 (>60 ml/min/1.73 sqM); Albumin 4.3 g/dL (3.5-5.0); Alkaline Phosphatase 85 U/L (38-126); Anion Gap 6 mmol/L; Blood Urea Nitrogen 7 mg/dL (7-17); Calcium 8.8 mg/dL (8.4-10.2); Carbon Dioxide 28 mmol/L (22-30); Chloride 102 mmol/L (98-107); Glucose 87 mg/dL (74-99); Non-African American GFR(CKD) >90 (>60 ml/min/1.73 sqM); Potassium 4.3 mmol/L (3.5-5.1); Sodium 136 mmol/L (137-145); Total Bilirubin 0.3 mg/dL (0.2-1.3); Total Protein 7.8 g/dL (6.3-8.2)
[2022-02-27 21:10] LABS: INR 1.1 (<1.2); Partial Thromboplastin Time 26.5 sec (22.0-30.0); Prothrombin Time 11.3 sec (9.0-12.0)
[2022-02-27] MEDS ORDERED: MECLIZINE 12.5 MG TAB PO STA (21:15)
--- NOTE | 2022-02-27 21:15 | ED ---
Dizziness HPI - General Chief Complaint: Dizziness Stated Complaint: Dizziness, Light Headed, Possibly Time Seen by Provider: 02/27/22 19:47 Source: patient, RN notes reviewed Mode of arrival: wheelchair Limitations: no limitations - History of Present Illness Initial Comments: This is a 26-year-old female who presents to the emergency department for dizziness. States that this morning she woke up with dizziness. States that she wonders if she is , she has taken four at home tests all of which have been negative. This morning when she woke up, she noticed that she felt dizzy when she turned her head. Describes the dizziness as a room spinning sensation. Denies any history of vertigo, recent illness, or symptoms such as cough, congestion, sore throat, headaches, or fevers. Denies any chest pain, shortness of breath, nausea, or vomiting. She has not had similar symptoms in the past. States that she has been eating well today and drinking plenty of water. MD Complaint: dizziness Description: "room spinning" History of Same: No History of Trauma: No - Related Data Home Medications Medication Instructions Recorded Confirmed PARoxetine HCL 20 mg PO HS 11/04/21 02/27/22 Previous Rx's Medication Instructions Recorded Meclizine [Antivert] 25 mg PO TID PRN #20 tab 02/27/22 Allergies Allergy/AdvReac Type Severity Reaction Status Date / Time No Known Allergies Allergy Verified 02/27/22 21:32 Review of Systems ROS Statement: Those systems with pertinent positive or pertinent negative responses have been documented in the HPI. ROS Other: All systems not noted in ROS Statement are negative. Constitutional: Denies: fever, chills ENT: Denies: ear pain, throat pain, congestion Respiratory: Denies: cough, dyspnea Cardiovascular: Denies: chest pain, palpitations Gastrointestinal: Denies: abdominal pain, nausea, vomiting, diarrhea Genitourinary: Denies: urgency, dysuria Skin: Denies: rash Neurological: Reports: other (dizziness). Denies: headache, weakness Past Medical History Past Medical History: No Reported History Additional Past Medical History / Comment(s): Obstetric history O+, abs neg, Rub Imm, RPR NR, Hep B neg, HIV NR. She had chlamydia through the but tested negative on 12/19. GBS neg. History of Any Multi-Drug Resistant Organisms: None Reported Past Surgical History: No Surgical Hx Reported Past Anesthesia/Blood Transfusion Reactions: No Reported Reaction Past Psychological History: Depression Smoking Status: Former smoker Past Alcohol Use History: Rare Past Drug Use History: None Reported - Past Family History Mother Family Medical History: No Reported History General Exam Limitations: no limitations General appearance: alert, in no apparent distress Head exam: Present: atraumatic, normocephalic, normal inspection Eye exam: Present: normal appearance, PERRL, EOMI. Absent: scleral icterus, conjunctival injection, periorbital swelling ENT exam: Present: normal exam, mucous membranes moist Neck exam: Present: normal inspection. Absent: tenderness, meningismus, lymphadenopathy Respiratory exam: Present: normal lung sounds bilaterally. Absent: respiratory distress, wheezes, rales, rhonchi, stridor Cardiovascular Exam: Present: regular rate, normal rhythm, normal heart sounds. Absent: systolic murmur, diastolic murmur, rubs, gallop, clicks Neurological exam: Present: alert, oriented X3, CN II-XII intact, normal gait Psychiatric exam: Present: normal affect, normal mood Skin exam: Present: warm, dry, intact, normal color. Absent: rash Course Vital Signs 02/27/22 21:24 Temperature 98.4 F Pulse Rate 57 L Respiratory 18 Rate Blood Pressure 127/44 O2 Sat by Pulse 100 Oximetry Medical Decision Making - Medical Decision Making This is a 26-year-old female who presents to the emergency department for dizziness. Lab work revealed a mildly elevated WBC but was otherwise unremarkable. Patient noted to be neurovascularly intact. During discussion with the patient, she noted symptoms being triggered by changes in position and described the dizziness as "room spinning". Symptoms are suggestive of vertigo. She was given 25mg of Antivert in the emergency department. She noted improvemen t with the antivert. Given that the lab work was unremarkable and she had improvement with antivert, symptoms are likely related to vertigo. Rx for antivert sent to the patient's pharmacy. I did advise her that the antivert can be sedating and she should avoid taking it before she has to drive or focus on tasks. I also recommended she try the half somersault maneuver for improvement in symptoms. Return precautions reviewed in depth, the patient is instructed to return to the emergency department with any new, worsening, or concerning symptoms. Patient verbalized understanding. This case was discussed in detail with the attending ED physician. Presentation, findings, and treatment plan discussed in detail as well. - Lab Data Result diagrams: 02/27/22 20:27 02/27/22 20: Lab Results 02/27/22 02/27/22 02/27/22 Range/Units 20:27 20:27 20:27 WBC 11.1 H (3.8-10.6) k/uL RBC 4.73 (3.80-5.40) m/uL Hgb 13.6 (11.4-16.0) gm/dL Hct 42.2 (34.0-46.0) % MCV 89.2 (80.0-100.0) fL MCH 28.6 (25.0-35.0) pg MCHC 32.1 (31.0-37.0) g/dL RDW 14.0 (11.5-15.5) % Plt Count 403 (150-450) k/uL MPV 7.3 Neutrophils % 64 % Lymphocytes % 27 % Monocytes % 5 % Eosinophils % 2 % Basophils % 1 % Neutrophils # 7.1 (1.3-7.7) k/uL Lymphocytes # 2.9 (1.0-4.8) k/uL Monocytes # 0.6 (0-1.0) k/uL Eosinophils # 0.2 (0-0.7) k/uL Basophils # 0.1 (0-0.2) k/uL PT 11.3 (9.0-12.0) sec INR 1.1 (<1.2) APTT 26.5 (22.0-30.0) sec Sodium (137-145) mmol/L Potassium (3.5-5.1) mmol/L Chloride (98-107) mmol/L Carbon Dioxide (22-30) mmol/L Anion Gap mmol/L BUN (7-17) mg/dL Creatinine (0.52-1.04) mg/dL Est GFR (CKD-EPI)AfAm (>60 ml/min/1.73 sqM) Est GFR (CKD-EPI)NonAf (>60 ml/min/1.73 sqM) Glucose (74-99) mg/dL Calcium (8.4-10.2) mg/dL Total Bilirubin (0.2-1.3) mg/dL AST (14-36) U/L ALT (4-34) U/L Alkaline Phosphatase (38-126) U/L Troponin I (0.000-0.034) ng/mL Total Protein (6.3-8.2) g/dL Albumin (3.5-5.0) g/dL TSH (0.465-4.680) mIU/L HCG, Qual Urine Color Urine Appearance (Clear) Urine pH (5.0-8.0) Ur Specific Carey (1.001-1.035) Urine Protein (Negative) Urine Glucose (UA) (Negative) Urine Ketones (Negative) Urine Blood (Negative) Urine Nitrite (Negative) Urine Bilirubin (Negative) Urine Urobilinogen (<2.0) mg/dL Ur Leukocyte Esterase (Negative) Urine RBC (0-5) /hpf Urine WBC (0-5) /hpf Ur Squamous Epith Cells (0-4) /hpf Urine Mucus (None) /hpf Urine HCG, Qual Not Detected (Not Detectd) Coronavirus (PCR) (Not Detectd) Influenza Type A RNA (Not Detectd) Influenza Type B (PCR) (Not Detectd) 02/27/22 02/27/22 02/27/22 Range/Units 20:27 20:27 20:27 WBC (3.8-10.6) k/uL RBC (3.80-5.40) m/uL Hgb (11.4-16.0) gm/dL Hct (34.0-46.0) % MCV (80.0-100.0) fL MCH (25.0-35.0) pg MCHC (31.0-37.0) g/dL RDW (11.5-15.5) % Plt Count (150-450) k/uL MPV Neutrophils % % Lymphocytes % % Monocytes % % Eosinophils % % Basophils % % Neutrophils # (1.3-7.7) k/uL Lymphocytes # (1.0-4.8) k/uL Monocytes # (0-1.0) k/uL Eosinophils # (0-0.7) k/uL Basophils # (0-0.2) k/uL PT (9.0-12.0) sec INR (<1.2) APTT (22.0-30.0) sec Sodium 136 L (137-145) mmol/L Potassium 4.3 (3.5-5.1) mmol/L Chloride 102 (98-107) mmol/L Carbon Dioxide 28 (22-30) mmol/L Anion Gap 6 mmol/L BUN 7 (7-17) mg/dL Creatinine 0.75 (0.52-1.04) mg/dL Est GFR (CKD-EPI)AfAm >90 (>60 ml/min/1.73 sqM) Est GFR (CKD-EPI)NonAf >90 (>60 ml/min/1.73 sqM) Glucose 87 (74-99) mg/dL Calcium 8.8 (8.4-10.2) mg/dL Total Bilirubin 0.3 (0.2-1.3) mg/dL AST 25 (14-36) U/L ALT 16 (4-34) U/L Alkaline Phosphatase 85 (38-126) U/L Troponin I <0.012 (0.000-0.034) ng/mL Total Protein 7.8 (6.3-8.2) g/dL Albumin 4.3 (3.5-5.0) g/dL TSH 3.210 (0.465-4.680) mIU/L HCG, Qual Urine Color Yellow Urine Appearance Cloudy H (Clear) Urine pH 7.5 (5.0-8.0) Ur Specific Carey 1.029 (1.001-1.035) Urine Protein Trace H (Negative) Urine Glucose (UA) Negative (Negative) Urine Ketones Negative (Negative) Urine Blood Negative (Negative) Urine Nitrite Negative (Negative) Urine Bilirubin Negative (Negative) Urine Urobilinogen 2.0 (<2.0) mg/dL Ur Leukocyte Esterase Small H (Negative) Urine RBC 7 H (0-5) /hpf Urine WBC 3 (0-5) /hpf Ur Squamous Epith Cells 3 (0-4) /hpf Urine Mucus Many H (None) /hpf Urine HCG, Qual (Not Detectd) Coronavirus (PCR) (Not Detectd) Influenza Type A RNA (Not Detectd) Influenza Type B (PCR) (Not Detectd) 02/27/22 02/27/22 02/27/22 Range/Units 20:27 20:27 20:27 WBC (3.8-10.6) k/uL RBC (3.80-5.40) m/uL Hgb (11.4-16.0) gm/dL Hct (34.0-46.0) % MCV (80.0-100.0) fL MCH (25.0-35.0) pg MCHC (31.0-37.0) g/dL RDW (11.5-15.5) % Plt Count (150-450) k/uL MPV Neutrophils % % Lymphocytes % % Monocytes % % Eosinophils % % Basophils % % Neutrophils # (1.3-7.7) k/uL Lymphocytes # (1.0-4.8) k/uL Monocytes # (0-1.0) k/uL Eosinophils # (0-0.7) k/uL Basophils # (0-0.2) k/uL PT (9.0-12.0) sec INR (<1.2) APTT (22.0-30.0) sec Sodium (137-145) mmol/L Potassium (3.5-5.1) mmol/L Chloride (98-107) mmol/L Carbon Dioxide (22-30) mmol/L Anion Gap mmol/L BUN (7-17) mg/dL Creatinine (0.52-1.04) mg/dL Est GFR (CKD-EPI)AfAm (>60 ml/min/1.73 sqM) Est GFR (CKD-EPI)NonAf (>60 ml/min/1.73 sqM) Glucose (74-99) mg/dL Calcium (8.4-10.2) mg/dL Total Bilirubin (0.2-1.3) mg/dL AST (14-36) U/L ALT (4-34) U/L Alkaline Phosphatase (38-126) U/L Troponin I (0.000-0.034) ng/mL Total Protein (6.3-8.2) g/dL Albumin (3.5-5.0) g/dL TSH (0.465-4.680) mIU/L HCG, Qual Not Detected Urine Color Urine Appearance (Clear) Urine pH (5.0-8.0) Ur Specific Carey (1.001-1.035) Urine Protein (Negative) Urine Glucose (UA) (Negative) Urine Ketones (Negative) Urine Blood (Negative) Urine Nitrite (Negative) Urine Bilirubin (Negative) Urine Urobilinogen (<2.0) mg/dL Ur Leukocyte Esterase (Negative) Urine RBC (0-5) /hpf Urine WBC (0-5) /hpf Ur Squamous Epith Cells (0-4) /hpf Urine Mucus (None) /hpf Urine HCG, Qual (Not Detectd) Coronavirus (PCR) Not Detected (Not Detectd) Influenza Type A RNA Not Detected (Not Detectd) Influenza Type B (PCR) Not Detected (Not Detectd) Disposition Clinical Impression: BPPV (benign paroxysmal positional vertigo) Disposition: HOME SELF-CARE Instructions (If sedation given, give patient instructions): Vertigo (ED), Benign Paroxysmal Positional Vertigo (ED), Dizziness (ED) Additional Instructions: Return to the emergency department with any new, worsening, or concerning sy mptoms. Take the Antivert as needed up to 3 times daily for episodes of vertigo. Try the half somersault maneuver created by Dr. Barbi Ibarra as discussed. Follow up with your primary care provider in 1-2 days. Prescriptions: Meclizine [Antivert] 25 mg PO TID PRN #20 tab PRN Reason: Vertigo Is patient prescribed a controlled substance at d/c from ED?: No Referrals: Inder Goncalves MD [Primary Care Provider] - 1-2 days
[2022-02-27 21:26] VITALS: RESP 18; TEMP 98.4
[2022-02-27 23:18] VITALS: BP 124/81; PULSE 60
== END 2022-02-27 23:19 | disposition home or self-care (01) ==
LOC: EC 18:55
DX: H81.10 Benign paroxysmal vertigo, unspecified ear (principal); Z87.891 Personal history of nicotine dependence; Z20.822 Contact with and (suspected) exposure to COVID-19
CPT/HCPCS: 36415; 80053; 81001; 81025; 84443; 84484; 84703; 85025; 85610; 85730; 87502; 87635; 93005; 99284

== ENCOUNTER 2024-08-09 15:17 | Emergency (ER) | payer OTHER ==
--- NOTE | 2024-08-09 15:36 | ED ---
Extremity Problem HPI - General Stated complaint: R Toe Infection Time Seen by Provider: 08/09/24 15:35 Source: patient, RN notes reviewed Mode of arrival: ambulatory Limitations: no limitations - History of Present Illness Initial comments: 28-year-old female presented to the ER with a chief complaint of right great toe pain. Patient states she started to experience pain last night. She also reports erythema and edema. No known injuries or traumas. No history of diabetes or gout. - Related Data Home Medications Medication Instructions Recorded Confirmed PARoxetine HCL 20 mg PO HS 11/04/21 02/27/22 Previous Rx's Medication Instructions Recorded Meclizine [Antivert] 25 mg PO TID PRN #20 tab 02/27/22 Allergies Allergy/AdvReac Type Severity Reaction Status Date / Time No Known Allergies Allergy Verified 08/09/24 15:47 Review of Systems ROS Statement: Those systems with pertinent positive or pertinent negative responses have been documented in the HPI. ROS Other: All systems not noted in ROS Statement are negative. Past Medical History Past Medical History: No Reported History Additional Past Medical History / Comment(s): Obstetric history O+, abs neg, Rub Imm, RPR NR, Hep B neg, HIV NR. She had chlamydia through the but tested negative on 12/19. GBS neg. History of Any Multi-Drug Resistant Organisms: None Reported Past Surgical History: No Surgical Hx Reported Past Anesthesia/Blood Transfusion Reactions: No Reported Reaction Past Psychological History: Depression Smoking Status: Former smoker Past Alcohol Use History: Rare Past Drug Use History: None Reported - Past Family History Mother Family Medical History: No Reported History General Exam - General Exam Comments Initial Comments: Visual Physical Exam Vital signs reviewed General: Well-appearing, nontoxic, no acute distress. Head: Normocephalic, atraumatic Eyes: PERRLA, EOMI ENT: Airway patent Chest: Nonlabored breathing Skin: No visual rash, normal skin tone Neuro: Alert and oriented 3 Musculoskeletal: No gross abnormalities General appearance: alert, in no apparent distress Respiratory exam: Present: normal lung sounds bilaterally. Absent: respiratory distress, wheezes, rales, rhonchi, stridor Cardiovascular Exam: Present: regular rate, normal rhythm, normal heart sounds. Absent: systolic murmur, diastolic murmur, rubs, gallop, clicks Extremities exam: Present: tenderness (right great toe IP joint minimal overlying erythema. full active ROM. no drainable abscess.) Course Vital Signs 08/09/24 08/09/24 15:46 17:16 Temperature 98 F 98.0 F Pulse Rate 72 70 Respiratory 18 18 Rate Blood Pressure 126/84 122/80 O2 Sat by Pulse 98 98 Oximetry Medical Decision Making - Medical Decision Making I performed the quick note portion of this chart. Electronically signed by Naomi Springer PA-C Was pt. sent in by a medical professional or institution (, [facility], OIL WELL DIRECTIONAL SURVEYOR, urgent care, hospital, or custodial...) When possible be specific @ -No Did you speak to anyone other than the patient for history (EMS, parent, family, police, friend...)? What history was obtained from this source @ -No Did you review nursing and triage notes (agree or disagree)? Why? @ -I reviewed and agree with nursing and triage notes Were old charts reviewed (outside hosp., previous admission, EMS record, old EKG, old radiological studies, urgent care reports/EKG's, custodial records)? Report findings @ -No old charts were reviewed Differential Diagnosis (chest pain, altered mental status, abdominal pain women, abdominal pain men, vaginal bleeding, weakness, fever, dyspnea, syncope, headache, dizziness, GI bleed, back pain, seizure, CVA, palpatations, mental health, musculoskeletal)? @ -Differential Musculoskeletal: Muscular strain, contusion, ligament sprain, fracture, arthritis, septic arthritis, bursitis, cellulitis, muscle spasm, nerve compression, DVT, arterial occlusion, herpes zoster, electrolyte abnormality, tumor.... This is not meant to be in all inclusive list EKG interpreted by me (3pts min.). @-None done X-rays interpreted by me (1pt min.). @ -Right toe x-ray interpreted me negative for acute osseous process. CT interpreted by me (1pt min.). @ -None done U/S interpreted by me (1pt. min.). @ -None done What testing was considered but not performed or refused? (CT, X-rays, U/S, labs)? Why? @ -None What meds were considered but not given or refused? Why? @ -None Did you discuss the management of the patient with other professionals (professionals i.e. Dr., PA, OIL WELL DIRECTIONAL SURVEYOR, lab, RT, psych nurse, social security specialist, pneumatic tool operator, teacher, engineering officer, case packer and sealer)? Give summary @ -No Was smoking cessation discussed for >3mins.? @ -No Was critical care preformed (if so, how long)? @ -No Were there social determinants of health that impacted care today? How? (Homelessness, low income, unemployed, alcoholism, drug addiction, transportation, low edu. Level, literacy, decrease access to med. care, senior care, rehab)? @ -No Was there de-escalation of care discussed even if they declined (Discuss DNR or withdrawal of care, Hospice)? DNR status @ -No What co-morbidities impacted this encounter? (DM, HTN, Smoking, COPD, CAD, Cancer, CVA, ARF, Chemo, Hep., AIDS, mental health diagnosis, sleep apnea, morbid obesity)? @ -None Was patient admitted / discharged? Hospital course, mention meds given and route, prescriptions, significant lab abnormalities, going to OR and other pertinent info. @ -Discharge. 28-year-old male presented to ER with a chief complaint of right great toe pain. History physical exam completed. Vitals within normal limits. Patient in no signs of distress and nontoxic-appearing. There is mild tenderness to right great toe IP joint. Patient is full active range of motion. Right lower extremity neurovascular intact. X-rays obtained negative for acute process. Patient received p.o. ibuprofen for symptom control in the ER. Upon reevaluation, patient resting comfortably in exam room no signs of acute distress. Patient does report improvement of pain. Results discussed with patient, all questions answered. Conservative treatment options discussed. Patient discharged in stable condition with follow-up to PCP. Patient verbally expressed understanding agree with care plan. Case discussed with ED attending, Dr. Nguyễn. Undiagnosed new problem with uncertain prognosis? @ -No Drug Therapy requiring intensive monitoring for toxicity (Heparin, Nitro, Insulin, Cardizem)? @ -No Were any procedures done? @ -No Diagnosis/symptom? @ -Toe pain Acute, or Chronic, or Acute on Chronic? @ -Acute Uncomplicated (without systemic symptoms) or Complicated (systemic symptoms)? @ -Uncomplicated Side effects of treatment? @ -No Exacerbation, Progression, or Severe Exacerbation? @ -No Poses a threat to life or bodily function? How? (Chest pain, [place], [place], pneumonia, PE, COPD, DKA, ARF, appy, cholecystitis, CVA, Diverticulitis, Homicidal, Suicidal, threat to staff... and all critical care pts) @ -No - Radiology Data Radiology results: report reviewed, image reviewed Disposition Clinical Impression: Toe pain Disposition: HOME SELF-CARE Condition: Stable Additional Instructions: Continue taking [id number] ibuprofen and Tylenol for his pain control. Continue to rest ice and elevate. Return to the ER for any new or worsening concerns. Follow-up with PCP. Is patient prescribed a controlled substance at d/c from ED?: No Referrals: Inder Goncalves MD [Primary Care Provider] - 1-2 days Time of Disposition: 16:53
[2024-08-09 15:47] VITALS: RESP 18
[2024-08-09] MEDS: IBUPROFEN 600 MG TAB PO STA (16:04)
--- NOTE | 2024-08-09 16:49 | XR ---
Right great toe. HISTORY: Pain and swelling. COMPARISON: None TECHNIQUE: 3 views of the right great toe were obtained. FINDINGS: There is no fracture or focal intraosseous abnormality. There is mild hallux valgus deformity. Soft tissues are unremarkable. IMPRESSION: 1. No acute trauma. 2. Mild hallux valgus deformity [facility] Yasmin Fierro, Workstation: [facility], 08/09/2024 4:47 PM
[2024-08-09 17:18] VITALS: BP 122/80; PULSE 70; TEMP 98
== END 2024-08-09 17:16 | disposition home or self-care (01) ==
LOC: EC 15:17
CPT/HCPCS: 99283